=== PATIENT | female | born 2000 | race Caucasian/White ===

== ENCOUNTER → 2019-05-04 10:14 | Outpatient (CLI) | payer SELFPAY ==
[2019-05-04 08:55] VITALS: BMI 22.5
[2019-05-04 10:49] LABS: Basophil# 0.03 X10^3/uL; Basophil% 0.4 % (0-1); Eosinophil# 0.11 X10^3/uL; Eosinophils% 1.5 % (0-5); Hematocrit 42.6 % (37-47); Hemoglobin 14.9 g/dL (12.0-15.0); Lymphocyte % 20.7 % (19-41); Mean Corpuscular Volume 88.6 fL (81-99); Mean Platelet Vol. 9.1 fl (6.2-12.0); Monocyte# 0.59 X10^3/uL; Monocyte% 8.2 % (0-10); NRBC Flagged by Analyzer 0 % (0-5); Neutrophil # 4.96 X10^3/uL (2.7-7.7); Neutrophil % 68.6 % (47-70); Platelet Count 327 K/mm3 (150-450); RBC Distribution Width CV 12.2 % (11.6-14.6); RBC Distribution Width SD 39.7 fl (35.1-43.9); Red Blood Count 4.81 M/mm3 (4.2-5.4); White Blood Count 7.2 K/mm3 (4.4-11.0)
[2019-05-04 12:07] LABS: HIV - WCH Non-Reactive (Nonreactive); Hepatitis B Surface Antigen Non-Reactive (Nonreactive); Rubella IgG 49.8 IU/mL
[2019-05-04 17:16] LABS: Chlamydia Trachomatis by PCR Negative (Negative); Neisserai gonorrhoeae by PCR Negative (Negative); Probe Check PASS; Sample Adequacy Control PASS; Specimen Processing Control PASS
[2019-05-08 16:24] LABS: HPV Reflexed? NOT INDICATED
[2019-05-11 01:48] LABS: Rapid Plasmin Reagin (RPR) NONREACTIVE (NONREACTIVE)
== END ==
PROVIDERS: Referring Provider Obstetrics & Gynecology; Visit Provider Obstetrics & Gynecology
DX: Z12.4 Encounter for screening for malignant neoplasm of cervix (principal)
CPT/HCPCS: 36415; 85025; 86592; 86703; 86762; 86850; 86900; 86901; 87086; 87340; 87491; 87591; 88175; G0145

== ENCOUNTER → 2019-07-11 11:29 | Outpatient (CLI) | payer SELFPAY ==
[2019-06-05 13:06] VITALS: BMI 22.5
[2019-07-11 11:22] VITALS: BMI 22.5
--- NOTE | 2019-07-11 11:58 | US_ITS ---
STUDY: SECOND AND THIRD TRIMESTER OBSTETRICAL ULTRASOUND REASON FOR EXAM: Female, 19 years old ANATOMY -- SUPERVISION OF NORMAL LMP: February 25, 2019. TECHNIQUE: Transabdominal and Transvaginal TECHNICAL QUALITY: Adequate. PRIOR ULTRASOUND: None. FINDINGS: There is a single intrauterine fetus. The fetus is in a breech presentation. There is demonstrated cardiac activity with a heart rate of 147 bpm. There is a normal amniotic fluid volume. The largest amniotic fluid pocket measures 3.8 cm x 3.7 cm. The amniotic fluid index (KIRSTY) is within normal limits. The placenta is posterior in location and is not low lying. There are Grade 1 placental changes. The cervix measures 4.2 in length. The adnexal regions are not visualized. BIOMETRY: BPD: 4.2 cm: 18 weeks, 5 days HC: 15.91 cm: 18 weeks, 5 days AC: 13.54 cm: 18 weeks, 6 days FL: 2.98 cm: 19 weeks, 1 days CI: 76% FL/BPD: 70.9% FL/HC: FL/AC: 22% HC/AC: 1.18 age by current US: 18 weeks, 6 days. RADHA by current US: December 06, 2019. Estimated weight: 271 grams, +/- 40 grams, 25 %. Age by LMP: 19 weeks, 3 days. RADHA by LMP: December 02, 2019. ANATOMY: Gender: Female Cranium: Normal lateral ventricles. Normal choroid plexus. Normal cerebellum. Normal cisterna magna. Normal face, nose and lips. Chest: Normal 4-chamber heart. Abdomen/Pelvis: Normal diaphragm. Normal stomach. Normal abdominal wall. The cord insertion is non-visualized. Possible marginal cord insertion Normal 3 vessel cord. Normal kidneys. Normal bladder. Spine: Normal cervical spine. Normal thoracic spine. Normal lumbar spine. Normal sacrum. Extremities: Normal bilateral upper extremities. Normal bilateral lower extremities. US/OB Anatomy Scan IMPRESSION: Single live intrauterine gestation with a mean gestational age of 18 weeks and 6 days. Electronically Signed: Rojelio Wise, at 12:20 EST , Service support ,
== END ==
PROVIDERS: Referring Provider Obstetrics & Gynecology; Visit Provider Obstetrics & Gynecology
DX: Z34.01 Encounter for supervision of normal first pregnancy, first trimester (principal)
CPT/HCPCS: 76805

== ENCOUNTER → 2019-08-28 13:33 | Outpatient (CLI) | payer SELFPAY ==
[2019-08-28 13:15] VITALS: BMI 22.5
[2019-08-28 14:32] LABS: Hematocrit 33.4 % (37-47); Hemoglobin 11.6 g/dL (12.0-15.0); Mean Corp Hgb Conc 34.7 g/dL (32-36); Mean Corpuscular Hgb 33.4 pg (27.0-32.0); Mean Corpuscular Volume 96.3 fL (81-99); Mean Platelet Vol. 9.2 fl (6.2-12.0); Platelet Count 226 K/mm3 (150-450); RBC Distribution Width CV 13.2 % (11.6-14.6); RBC Distribution Width SD 46.1 fl (35.1-43.9); Red Blood Count 3.47 M/mm3 (4.2-5.4); White Blood Count 10.3 K/mm3 (4.4-11.0)
[2019-08-28 14:39] LABS: Glucose Challenge Gest 1H 50g 150 mg/dL (70-140)
== END ==
PROVIDERS: Referring Provider Obstetrics & Gynecology; Visit Provider Obstetrics & Gynecology
DX: Z34.90 Encounter for supervision of normal pregnancy, unspecified, unspecified trimester (principal)
CPT/HCPCS: 36415; 82950; 85027

== ENCOUNTER → 2019-08-30 09:52 | Outpatient (CLI) | payer OTHER, SELFPAY ==
[2019-08-28 13:15] VITALS: BMI 22.5
[2019-08-30 11:17] LABS: Glucose GTT-Gestation. Fasting 75 mg/dL (<105)
[2019-08-30 13:02] LABS: Glucose GTT-Gestational 1 Hr 148 mg/dL (<190)
[2019-08-30 13:03] LABS: Glucose GTT-Gestational 2 Hr 143 mg/dL (<165)
[2019-08-30 14:13] LABS: Glucose GTT-Gestational 3 Hr 118 L (<145)
== END ==
PROVIDERS: Referring Provider Obstetrics & Gynecology; Visit Provider Obstetrics & Gynecology
DX: O99.810 Abnormal glucose complicating pregnancy (principal); Z3A.00 Weeks of gestation of pregnancy not specified
CPT/HCPCS: 36415; 82951; 82952

== ENCOUNTER → 2019-10-10 11:16 | Outpatient (CLI) | payer SELFPAY ==
[2019-10-09 13:10] VITALS: BMI 22.5
--- NOTE | 2019-10-10 11:18 | US_ITS ---
STUDY: SECOND AND THIRD TRIMESTER OBSTETRICAL ULTRASOUND - LIMITED REASON FOR EXAM: Female, 19 years old GROWTH LMP: February 25, 2019. PRIOR ULTRASOUND: Comparison is made with prior study dated July 11, 2019. TECHNIQUE: Transabdominal TECHNICAL QUALITY: Adequate. FINDINGS: There is a single intrauterine fetus. The fetus is in a cephalic presentation. There is demonstrated cardiac activity with a heart rate of 142 bpm. There is a normal amniotic fluid volume. The largest amniotic fluid pocket measures 4.9 cm. The amniotic fluid index (KIRSTY) is 14.3 cm. The placenta is posterior in location and is not low lying. There are Grade 1 placental changes. The cervix measures 3.2 cm in length. BIOMETRY: BPD: 8.16 cm: 32 weeks, 6 days HC: 29.48 cm: 32 weeks, 4 days AC: 28.1 cm: 32 weeks, 1 days FL: 6.03 cm: 31 weeks, 3 days Age by LMP: 32 weeks, 3 days. RADHA by LMP: December 02, 2019. age by prior US: 31 weeks, 6 days. RADHA by prior US: December 06, 2019. age by current US: 32 weeks, 2 days. RADHA by current US: December 03, 2019. Estimated weight: 1883 grams, +/- 275 grams, 27 percentile. US/OB Limited With Biometrics IMPRESSION: Single live uterine gestation with mean gestational age of 31 weeks and 6 days. The measurements obtained today fall within the normal expected range. Electronically Signed: Rojelio Wise, at 12:52 EDT , Service support ,
== END ==
PROVIDERS: Referring Provider Obstetrics & Gynecology; Visit Provider Obstetrics & Gynecology
DX: O26.849 Uterine size-date discrepancy, unspecified trimester (principal); Z3A.31 31 weeks gestation of pregnancy
CPT/HCPCS: 76816

== ENCOUNTER 2019-12-01 05:10 | Inpatient (IN) | payer SELFPAY ==
[2019-06-05 13:06] VITALS: BMI 22.5
[2019-11-27 13:10] VITALS: BMI 22.5
[2019-11-30 10:12] VITALS: BMI 22.5
[2019-12-01] VITALS (71 sets, daily range): BP systolic 99–130; BP diastolic 61–87; PULSE 78–133; RESP 16; TEMP 36.6–37.3; O2SAT 93–100; BMI 26.2
[2019-12-01] MEDS: Lactated Ringers 1,000 ML 999 ML IV (03:08)
[2019-12-01] MEDS: fentaNYL 100 MCG/2 ML Ampul 50 MCG IV (03:21)
[2019-12-01] MEDS: proMETHazine 25 MG/ML Syringe 12.5 MG IV (03:21)
[2019-12-01 03:24] LABS: Absolute Lymphocyte Count 1.29 X10^3/uL (0.83-4.51); Absolute Neutrophil Count 11.6 X10^3/uL (2.0-7.7); Basophil# 0.02 X10^3/uL; Basophil% 0.1 % (0-1); Eosinophil# 0.08 X10^3/uL; Eosinophils% 0.6 % (0-5); Hematocrit 37.5 % (37-47); Hemoglobin 12.6 g/dL (12.0-15.0); Lymphocyte # 1.29 X10^3/ul (4.0); Lymphocyte % 9.2 % (19-41); Mean Corp Hgb Conc 33.6 g/dL (32-36); Mean Corpuscular Hgb 31.5 pg (27.0-32.0); Mean Corpuscular Volume 93.8 fL (81-99); Mean Platelet Vol. 9.3 fl (6.2-12.0); Monocyte# 0.97 X10^3/uL; Monocyte% 6.9 % (0-10); NRBC Flagged by Analyzer 0 % (0-5); Neutrophil # 11.55 X10^3/uL (2.7-7.7); Neutrophil % 82.5 % (47-70); Platelet Count 211 K/mm3 (150-450); RBC Distribution Width CV 13.1 % (11.6-14.6); RBC Distribution Width SD 44.9 fl (35.1-43.9)
[2019-12-01 05:07] LABS: ROM Internal Control Test YES-OK TO RESULT pt. (Internal QC); ROM Patient Test POSITIVE (Negative)
[2019-12-01] MEDS: Lactated Ringers 500 ML 999 ML IV (05:25)
[2019-12-01] MEDS: Lactated Ringers 1,000 ML 200 ML IV (05:55)
[2019-12-01] MEDS: fentaNYL-bupivacaine (epidural) 100 ML BAG EPIDURAL (06:48)
[2019-12-01] MEDS: Oxytocin 30 units/NS 500 ml 30 UNITS/500 ML IV.SOLN 334 UNITS IV (10:39)
[2019-12-01] MEDS: Methylergonovine 0.2 MG/ML Ampul IM (10:43)
[2019-12-01] MEDS: Carboprost Tromethamine 250 MCG/ML Ampul IM (10:49)
--- NOTE | 2019-12-01 10:57 | PCM.HP.OB ---
- Problem List (1) Active labor at term Status: Acute (2) Uterine size-date discrepancy, third trimester Status: Acute Comment: growth us, nl US (3) Abnormal glucose affecting Status: Acute Comment: Normal 3gtt (4) Status: Acute Qualifiers: Comment: declined NIPT, carrier, and ntd screening. normal anatomy (5) Supervision of normal Status: Acute Qualifiers: Comment: PRR RADHA 12/02/19 gender surprise Spouse: Atlee History Date of Admission: 12/01/19 Final RADHA: 12/02/19 Gestational age: 39 Weeks and 6 Days History of this : This is a 19 year-old, , at 39 weeks gestational age presents IAL. SROM clear fluid and then 6 cm dilated after epidural placement. Surgical History: Surgical History (Last Reviewed 11/30/19 @ 10:12 by Jayashree Smith) History of appendectomy Z90.49 Allergies No Known Allergies Allergy (Verified 12/01/19 00:53) Home Medications: Home Medications vitamin#30 30 mg iron-10 mg iron-folic acid 1 mg-omg3 capsule 1 cap PO DAILY cap 05/04/19 Smoking Status: Never smoker Alcohol: None Number of Fetus(es): 1 NST - FHR Rate Baby A Baseline: 130 Variability:: Moderate Accelerations:: 15 x 15 Decelerations:: None NST Reactive:: Yes FHR Category:: Category I Uterine Activity:: q 3-5 History Past Pregnancies: Past Pregnancies Delivery Date Name GA/ Weeks Outcome Route Wt Sex Labor Length Anesthesia Delivery Location Provider FOB Labs: Mom's Problem List Problem Status Onset Code Active labor at term Acute Mom's Labs & Results 12/01/19 12/01/19 12/01/19 03:08 03:08 05:00 WBC 14.0 H RBC 4.00 L Hgb 12.6 Hct 37.5 MCV 93.8 MCH 31.5 MCHC 33.6 RDW Std Deviation 44.9 H RDW Coeff of Bj 13.1 Plt Count 211 MPV 9.3 Immature Gran % (Auto) 0.700 Neut % (Auto) 82.5 H Lymph % (Auto) 9.2 L Harvey % (Auto) 6.9 Eos % (Auto) 0.6 Baso % (Auto) 0.1 Absolute Neuts (auto) 11.6 H Absolute Lymphs (auto) 1.29 Nucleated RBC % 0 Vag Amniotic Fld Detect POSITIVE H COVID-19 (KAYLA) Blood Type O POSITIVE Antibody Screen NEGATIVE 12/01/19 05:31 WBC RBC Hgb Hct MCV MCH MCHC RDW Std Deviation RDW Coeff of Bj Plt Count MPV Immature Gran % (Auto) Neut % (Auto) Lymph % (Auto) Harvey % (Auto) Eos % (Auto) Baso % (Auto) Absolute Neuts (auto) Absolute Lymphs (auto) Nucleated RBC % Vag Amniotic Fld Detect COVID-19 (KAYLA) Not Detected Blood Type Antibody Screen Course Did the patient receive Yes care? Labs Blood Type: O RH: POSITIVE RPR/VDRL/Syphilis Nonreactive Rubella status Immune HbSAg Negative Date Done: 05/04/19 Chlamydia Negative Gonorrhea Negative HIV/AIDS Non-Reactive Group B Strep: Negative Current Obstetrical History Gestational Diabetes No Incompetent Cervix No Infertility No IUGR No Macrosomia No Hypertension/Pre-eclampsia No Placenta Previa/Abruption No PTL/PROM No Uterine anomaly No Oligohydramnios No Polyhydramnios No Multiple gestation No Past Medical History Asthma No Diabetes No Hypertension No Heart disease No Mitral valve prolapse No Neurologic/Seizure disorder/ No Migraines Kidney disease No Liver disease No Varicosities No Clotting disorders/Hx of DVT No Thyroid Dysfunction No Other medical diseases No Psychiatric disorders No Major trauma No Abnormal PAP smear No Sleep apnea No Mammogram in the last 2 years No Social History Marital Status: Alleged father Atlee Hx Smoking No Smoking Status Never smoker Expected Infant Delivery Method: Spontaneous Vaginal Review of Systems Constitutional: Denies: Fever, Malaise Eyes: Denies: Blurred vision, Vision Change HEENT: Denies: Head Aches, Visual Changes Cardiovascular: Denies: Chest Pain, Palpitations Respiratory: Denies: Cough, Shortness of Breath, Wheezing Gastrointestinal: Denies: Abdominal Pain, Diarrhea, Nausea, Vomiting Genitourinary: Denies: Dysuria, Hematuria Musculoskeletal: Denies: Joint Pain, Muscle pain Skin: Denies: Lesions, Rash Neurological: Denies: Blurred vision, Focal weakness, Headaches Psychiatric: Denies: Anxiety, Depression Endocrine: Denies: Heat/ Cold Intolerance Hematologic/ Lymphatic: Denies: Easy Bruising, Easy Bleeding Physical Exam Vitals: Vital Signs Temp Pulse BP Pulse Ox 99.2 F H 99 112/61 99 12/01/19 09:37 12/01/19 10:53 12/01/19 10:52 12/01/19 10:53 General: Alert, Cooperative, No apparent distress HEENT: Atraumatic, Normocephalic. Negative for: Thyromegaly, Lymphadenopathy Cardiovascular: Regular rate Lungs: Normal air movement Abdomen: Soft, Non Tender, Gravid Neurological: Deep Tendon Reflexes 2+/4 and Symmetrical, Neuro grossly intact. Negative for: Clonus EXPLOSIVE ORDNANCE DISPOSAL SPECIALIST: Normal external genitalia. Negative for: Vulvar lesions Estimated gestational size: Appropriate for gestational size Presentation: Cephalic Assessment/Plan All Active Problems (Last Reviewed 11/30/19 @ 10:12 by Jayashree Smith) Active labor at term (Acute) Uterine size-date discrepancy, third trimester (Acute) Abnormal glucose affecting (Acute) (Acute) Supervision of normal (Acute) Uterine size-date discrepancy, third trimester (Resolved) This is a 19 year-old, at 39 weeks gestational age presents IAL. Patient presents IAL, plan expectant management for , . Pain management: Plans epidural. GBS negative. Management of any complications: None I have reviewed the [facility] and made any clinically relevant updates.
--- NOTE | 2019-12-01 11:04 | PCM.OPRPT ---
Problem List (1) Active labor at term Status: Acute (2) Uterine size-date discrepancy, third trimester Status: Acute Comment: growth us, nl US (3) Abnormal glucose affecting Status: Acute Comment: Normal 3gtt (4) Status: Acute Qualifiers: Comment: declined NIPT, carrier, and ntd screening. normal anatomy (5) Supervision of normal Status: Acute Qualifiers: Comment: PRR RADHA 12/02/19 gender surprise Spouse: Atlee (6) Vaginal delivery Status: Acute (7) Uterine atony, , without hemorrhage Status: Acute Vaginal Delivery Maternal Presentation: Active Labor ial Amniotic Membrane Rupture Type: Spontaneous Amniotic Fluid Description: Clear Final RADHA: 12/02/19 Gestational age: 39 Weeks and 6 Days Date of Procedure: 12/01/19 Pre-Operative Diagnosis: ial Post-Operative Diagnosis: same plus atony Surgery/ Procedure Performed: Spontaneous Vaginal Delivery Type of Anesthesia: Epidural Description of Procedure: Patient began pushing and delivered the head in the MICHAEL presentation. The head was delivered atraumatically [and a loose nuchal cord ?1 was identified and easily reduced over the 's head]. The anterior and posterior shoulders delivered without complication followed by the rest of the infant and the infant was placed on the maternal abdomen. Delayed cord clamping was employed for approximately 60 seconds. Cord was clamped and cut and gentle traction was applied to the cord and the placenta delivered spontaneously immediately following it was noted to be intact with three-vessel cord. The perineum and vagina were inspected and noted to have a second-degree perineal laceration and a supraclitoral small superficial first-degree tear that was repaired in the usual fashion with 3-0 Vicryl repeat. Uterine atony without hemorrhage was noted after delivery and with bimanual massage, Methergine, Pitocin, Hemabate, bleeding was controlled. Tranexamic acid was also ordered and given to proactively treat. EBL was 600 . Patient and infant tolerated delivery well. Presentation: MICHAEL Placental Delivery Description: Spontaneous Placenta Disposition: [facility] Cord Vessel Description: 3 Vessels Cord Entanglement: None Estimated Blood Loss: 600 A gender: Female Episiotomy Description: None Laceration: Perineal Extension/lac, 2nd degree Medications given after delivery: IV Pitocin Complications: None Multi Select Codes - Urinary/Genital Urinary/Genital CPT Codes: 52085 Vaginal Delivery global g
--- NOTE | 2019-12-01 11:15 | DCINST_ITS ---
Discharge Diet: No Restrictions Discharge Activity: Return to Normal Activity, May not drive while taking narcotic pain medications., May Shower May resume sexual activity in: 4-6 weeks Call your doctor if your incision/area has: Continuous Slow Oozing, Sudden Increased Bleeding, Increased Pain/ Swelling, Increased Redness, Foul Smelling Discharge Additional Instructions: If you experience any of the following, contact your healthcare provider. * Bleeding that soaks a pad every hour for 2 hours * Fever 100.4 or higher * Unrelieved incision or abdominal pain * Swelling, redness, discharge or bleeding from your incision or episiotomy site * Your incision begins to separate * Problems urinating (including inability to urinate or burning while urinating). * Visual changes * Severe headache * Flu-like symptoms * Pain or redness in one of both of your breasts * Pain, warmth, tenderness or swelling in your legs, especially the calf area * Frequent nausea and vomiting * Symptoms of depression or anxiety If you experience any of the following, call 911 or go to the nearest Emergency Room. * Chest pain * Problems breathing * Seizure activity * Partial or complete paralysis of a body part, slurred speech, weakness or drooping of the face, or a sudden inability to walk or hold your balance Allergies/Adverse Reactions: Allergies No Known Allergies Allergy (Verified 12/01/19 00:53) Medications to take at Discharge vitamin#30 30 mg iron-10 mg iron-folic acid 1 mg-omg3 capsule 1 cap PO DAILY cap 05/04/19 Please Follow Up With: Katy Gonzalez MD - [phone] When: Call to make an appointment with your doctor in 6 weeks. If you had elevated Blood pressure or 4th degree laceration you will need to be seen in 2 weeks. Primary Care Physician: Care Physician,No Primary [Primary Care Provider] - Test Results: Test results from this visit will be discussed in further detail at your follow- up appointment, if applicable.
--- NOTE | 2019-12-01 11:15 | PCM.DCVAG ---
Discharge Diet: No Restrictions Discharge Activity: Return to Normal Activity, May not drive while taking narcotic pain medications., May Shower May resume sexual activity in: 4-6 weeks Call your doctor if your incision/area has: Continuous Slow Oozing, Sudden Increased Bleeding, Increased Pain/ Swelling, Increased Redness, Foul Smelling Discharge Additional Instructions: If you experience any of the following, contact your healthcare provider. Bleeding that soaks a pad every hour for 2 hours Fever 100.4 or higher Unrelieved incision or abdominal pain Swelling, redness, discharge or bleeding from your incision or episiotomy site Your incision begins to separate Problems urinating (including inability to urinate or burning while urinating). Visual changes Severe headache Flu-like symptoms Pain or redness in one of both of your breasts Pain, warmth, tenderness or swelling in your legs, especially the calf area Frequent nausea and vomiting Symptoms of depression or anxiety If you experience any of the following, call 911 or go to the nearest Emergency Room. Chest pain Problems breathing Seizure activity Partial or complete paralysis of a body part, slurred speech, weakness or drooping of the face, or a sudden inability to walk or hold your balance Allergies/Adverse Reactions: Allergies No Known Allergies Allergy (Verified 12/01/19 00:53) Medications to take at Discharge vitamin#30 30 mg iron-10 mg iron-folic acid 1 mg-omg3 capsule 1 cap PO DAILY cap 05/04/19 Please Follow Up With: Katy Gonzalez MD - [phone] When: Call to make an appointment with your doctor in 6 weeks. If you had elevated Blood pressure or 4th degree laceration you will need to be seen in 2 weeks. Primary Care Physician: Care Physician,No Primary [Primary Care Provider] - Test Results: Test results from this visit will be discussed in further detail at your follow-up appointment, if applicable.
[2019-12-01] MEDS: 0.9% Saline Lock 10 ML Syringe IV ×3 (11:16→13:26)
[2019-12-01] MEDS: Naproxen 250 MG Tablet 500 MG PO ×2 (14:37→22:41)
--- NOTE | 2019-12-01 18:48 | NURSING ---
Scant amount of rubra noted on pt's peripad when changed with recent void and pericare.
[2019-12-02] VITALS (7 sets, daily range): BP systolic 96–105; BP diastolic 41–67; PULSE 81–98; RESP 15–17; TEMP 36.3–37.2
[2019-12-02] MEDS: Acetaminophen 500 MG Tablet 1000 MG PO ×2 (00:45→07:44)
[2019-12-02 05:40] LABS: Absolute Lymphocyte Count 1.72 X10^3/uL (0.83-4.51); Absolute Neutrophil Count 10.6 X10^3/uL (2.0-7.7); Basophil# 0.02 X10^3/uL; Basophil% 0.1 % (0-1); Eosinophil# 0.17 X10^3/uL; Eosinophils% 1.2 % (0-5); Hematocrit 30.4 % (37-47); Hemoglobin 9.9 g/dL (12.0-15.0); Lymphocyte # 1.72 X10^3/ul (4.0); Lymphocyte % 12.3 % (19-41); Mean Corp Hgb Conc 32.6 g/dL (32-36); Mean Corpuscular Hgb 30.7 pg (27.0-32.0); Mean Corpuscular Volume 94.4 fL (81-99); Mean Platelet Vol. 9.6 fl (6.2-12.0); Monocyte# 1.33 X10^3/uL; Monocyte% 9.5 % (0-10); NRBC Flagged by Analyzer 0 % (0-5); Neutrophil # 10.62 X10^3/uL (2.7-7.7); Platelet Count 211 K/mm3 (150-450); RBC Distribution Width CV 13.2 % (11.6-14.6); RBC Distribution Width SD 45.2 fl (35.1-43.9); Red Blood Count 3.22 M/mm3 (4.2-5.4)
[2019-12-02] MEDS: Naproxen 250 MG Tablet 500 MG PO (09:53)
--- NOTE | 2019-12-02 10:50 | PN.OBGYN_ITS ---
Patient Problems: Active and Suspected Problems (Last Reviewed 11/30/19 @ 10:12 by Jayashree Smith) Active labor at term (Acute) Vaginal delivery (Acute) Uterine atony, , without hemorrhage (Acute) Subjective: doing well no complaints pain controlled no CP SOB N V ambulating well tolerating po lochia moderate, going well - Physical Exam Vitals/I&O's: Vital Signs Temp Pulse Resp BP Pulse Ox 97.9 F 81 16 96/54 L 96 12/02/19 07:30 12/02/19 07:37 12/02/19 07:30 12/02/19 07:37 12/01/19 16:26 Oxygen Delivery Method Room Air Weight: 148 lb 6.4 oz Body Mass Index (BMI) 26.2 Intake and Output for Last 24 Hours 11/30/19 12/01/19 12/02/19 23:59 23:59 23:59 Intake Total 4056.17 / 4056.17 Output Total 2395 / 2395 Balance 1661.17 / 1661.17 Laboratory Results 12/02/19 05:30: WBC 14.0 H, RBC 3.22 L, Hgb 9.9 L, Hct 30.4 L, MCV 94.4, MCH 30.7, MCHC 32.6, RDW Std Deviation 45.2 H, RDW Coeff of Bj 13.2, Plt Count 211, MPV 9.6, Immature Gran % (Auto) 0.900, Neut % (Auto) 76.0 H, Lymph % (Auto) 12.3 L, [place] % (Auto) 9.5, Eos % (Auto) 1.2, Baso % (Auto) 0.1, Absolute Neuts (auto) 10.6 H, Absolute Lymphs (auto) 1.72, Nucleated RBC % 0 Current Medications Acetaminophen (Tylenol) 1,000 mg PO Q8H PRN PRN PRN Reason: Pain Score 1-3/10 Last Admin: 12/02/19 07:44 Dose: 1,000 mg Documented by: Bisacodyl (Dulcolax) 10 mg RECTAL UD PRN PRN Reason: If no BM Dibucaine (Dibucaine) 1 applic TOPICAL TID PRN PRN; Protocol PRN Reason: Discomfort Hydrocortisone (Hytone) 1 applic TOPICAL TID PRN PRN; Protocol PRN Reason: Discomfort Methylergonovine Maleate (Methergine) 0.2 mg IM X1 PRN PRN Reason: Excess bleeding/uterine atony Last Admin: 12/01/19 10:43 Dose: 0.2 mg Documented by: Naproxen (Naprosyn) 500 mg PO Q8H PRN PRN PRN Reason: Pain Score 1-3/10 Last Admin: 12/02/19 09:53 Dose: 500 mg Documented by: Ondansetron HCl (Zofran) 4 mg IV Q4H PRN PRN PRN Reason: Nausea Oxycodone HCl (Oxyir) 5 - 10 mg PO Q4H PRN PRN PRN Reason: Pain Score 4-10/10 Senna/Docusate Sodium (Senokot-S, Nida-Colace) 1 - 2 tablet PO DAILY PRN PRN PRN Reason: Constipation Simethicone (Mylicon) 80 mg PO PCHS PRN PRN Reason: Indigestion/Stomach pain Sodium Chloride () 5 - 15 ml IV UD PRN PRN Reason: SALINE FLUSH Last Admin: 12/01/19 13:26 Dose: 10 ml Documented by: Medical Necessity - Tobacco Use Smoking Status: Never smoker Assessment/Plan All Active Problems (Last Reviewed 11/30/19 @ 10:12 by Jayashree Smith) Active labor at term (Acute) Vaginal delivery (Acute) Uterine atony, , without hemorrhage (Acute) Uterine size-date discrepancy, third trimester (Acute) Abnormal glucose affecting (Acute) (Acute) Supervision of normal (Acute) Uterine size-date discrepancy, third trimester (Resolved) s/p PPD # 1 1. routine post delivery care 2. breast feeding- support given 3. rh positive 4. rubella immune uterine atony- minimal blood loss after initial episode, overall EBL 800 in last 24 hours
--- NOTE | 2019-12-02 14:52 | NURSING ---
1325 and maternal bracelet numbers match; placed in car seat per parents; dc papers given and reviewed; pt denies any further teaching needs; dc to home
== END 2019-12-02 13:25 | disposition home or self-care (01) | DRG 807 ==
LOC: WPOUT 05:15 → WP 05:15
PROVIDERS: Admitting Provider Obstetrics & Gynecology; Visit Provider Obstetrics & Gynecology
DX: O70.1 Second degree perineal laceration during delivery (principal); Z37.0 Single live birth; O62.2 Other uterine inertia; O69.81X0 Labor and delivery complicated by cord around neck, without compression, not applicable or unspecified; Z90.49 Acquired absence of other specified parts of digestive tract; Z3A.39 39 weeks gestation of pregnancy
CPT/HCPCS: 59025; 59050; 84112; 85025; 86850; 86900; 86901; 87635; 99218; G2023; J7120; A4216; G0378; U0003

== ENCOUNTER → 2020-11-11 18:58 | Outpatient (CLI) | payer OTHER, SELFPAY ==
[2020-01-11 10:43] VITALS: BMI 26.2
[2020-11-11 19:51] LABS: hCG Titer Quant., Serum 10 mIU/mL (1-3)
== END ==
PROVIDERS: Visit Provider Obstetrics & Gynecology
DX: O20.0 Threatened abortion (principal); Z3A.00 Weeks of gestation of pregnancy not specified
CPT/HCPCS: 84702

== ENCOUNTER → 2021-05-06 17:24 | Outpatient (CLI) | payer SELFPAY ==
[2021-05-08 22:07] LABS: Chlamydia By Nucleic Acid AMP Negative (Negative)
[2021-05-09 16:09] LABS: Gonococcus By Nucleic Acid AMP Negative (Negative)
== END ==
PROVIDERS: Referring Provider Obstetrics & Gynecology; Visit Provider Obstetrics & Gynecology
DX: Z34.80 Encounter for supervision of other normal pregnancy, unspecified trimester (principal)
CPT/HCPCS: 87086; 87088; 87491; 87591

== ENCOUNTER 2021-06-04 11:27 | Outpatient (CLI) | payer SELFPAY ==
[2021-06-04 12:01] LABS: Absolute Lymphocyte Count 1.68 X10^3/uL (0.83-4.51); Absolute Neutrophil Count 5.8 X10^3/uL (2.0-7.7); Basophil# 0.02 X10^3/uL; Basophil% 0.2 % (0-1); Eosinophil# 0.12 X10^3/uL; Eosinophils% 1.4 % (0-5); Hematocrit 38.3 % (37-47); Hemoglobin 13.5 g/dL (12.0-15.0); Lymphocyte # 1.68 X10^3/ul (0.83-4.51); Lymphocyte % 20.3 % (19-41); Mean Corp Hgb Conc 35.2 g/dL (32-36); Mean Corpuscular Volume 87.8 fL (81-99); Monocyte# 0.58 X10^3/uL; NRBC Flagged by Analyzer 0 % (0-5); Neutrophil # 5.84 X10^3/uL (2.7-7.7); Neutrophil % 70.6 % (47-70); Platelet Count 287 K/mm3 (150-450); RBC Distribution Width CV 12.8 % (11.6-14.6); Red Blood Count 4.36 M/mm3 (4.2-5.4); White Blood Count 8.3 K/mm3 (4.4-11.0)
[2021-06-04 12:40] LABS: Rubella IgG Reactive (Nonreactive)
== END 2021-06-04 23:59 | disposition short-term general hospital (02) ==
LOC: PAVLAB 11:28
PROVIDERS: Obstetrics & Gynecology; Referring Provider Nurse Practitioner Women's Health; Visit Provider Nurse Practitioner Women's Health
DX: Z34.80 Encounter for supervision of other normal pregnancy, unspecified trimester (principal)
CPT/HCPCS: 36415; 85025; 86762; 86850; 86900; 86901

== ENCOUNTER 2021-07-11 08:18 | Outpatient (CLI) | payer SELFPAY ==
--- NOTE | 2021-07-11 08:25 | US_ITS ---
STUDY: SECOND AND THIRD TRIMESTER OBSTETRICAL ULTRASOUND REASON FOR EXAM: Female, 21 years old . Anatomy scan. LMP: 02/24/2021. TECHNIQUE: Transabdominal and Transvaginal TECHNICAL QUALITY: Adequate. PRIOR ULTRASOUND: None. FINDINGS: There is a single intrauterine fetus. The fetus is in a cephalic presentation. There is demonstrated cardiac activity with a heart rate of 126 bpm. There is a normal amniotic fluid volume. The largest amniotic fluid pocket measures 4.5 cm x 3.3 cm. The amniotic fluid index (KIRSTY) is within normal limits. The placenta is anterior with a complete previa. There are Grade 0 placental changes. The cervix measures 4.9 cm in length. The adnexal regions are not visualized. BIOMETRY: BPD: 4.8 cm: 20 weeks, 4 days HC: 17.24 cm: 19 weeks, 5 days AC: 15.58 cm: 20 weeks, 5 days FL: 2.86 cm: 18 weeks, 5 days CI: 82% FL/BPD: 59% FL/HC: FL/AC: 18% HC/AC: 1.11 age by current US: 19 weeks, 5 days. RADHA by current US: 11/30/2021. Estimated weight: 325 grams, +/- 49 grams, 68 %. Age by LMP: 19 weeks, 4 days. RADHA by LMP: 12/01/2021. ANATOMY: Gender: Indeterminant Cranium: Normal lateral ventricles. Normal choroid plexus. Normal cerebellum. Normal cisterna magna. Normal face, nose and lips. Chest: Normal 4-chamber heart. Abdomen/Pelvis: Normal diaphragm. Normal stomach. Normal abdominal wall. Normal cord insertion. Normal 3 vessel cord. Normal kidneys. Normal bladder. Spine: Normal cervical spine. Normal thoracic spine. Normal lumbar spine. Normal sacrum. Extremities: Normal bilateral upper extremities. Normal bilateral lower extremities. IMPRESSION: Single live intrauterine gestation with a mean gestational age of 19 weeks and 5 days. There is evidence of an anterior complete placenta previa. Electronically Signed: Rojelio Wise MD at 9:18 EST , STUDY: FIRST TRIMESTER OBSTETRICAL ULTRASOUND REASON FOR EXAM: Female, 21 years old . Cervical length measurement. LMP: 02/24/2021 TECHNIQUE: Transvaginal TECHNICAL QUALITY: Adequate. PRIOR ULTRASOUND: None. FINDINGS: The cervical length measures 4.9 cm. US/OB Anatomy Scan IMPRESSION: Cervical length measures 4.9 cm. Electronically Signed: Rojelio Wise MD at 9:19 EST ,
--- NOTE | 2021-07-11 08:25 | US_ITS ---
STUDY: SECOND AND THIRD TRIMESTER OBSTETRICAL ULTRASOUND REASON FOR EXAM: Female, 21 years old . Anatomy scan. LMP: 02/24/2021. TECHNIQUE: Transabdominal and Transvaginal TECHNICAL QUALITY: Adequate. PRIOR ULTRASOUND: None. FINDINGS: There is a single intrauterine fetus. The fetus is in a cephalic presentation. There is demonstrated cardiac activity with a heart rate of 126 bpm. There is a normal amniotic fluid volume. The largest amniotic fluid pocket measures 4.5 cm x 3.3 cm. The amniotic fluid index (KIRSTY) is within normal limits. The placenta is anterior with a complete previa. There are Grade 0 placental changes. The cervix measures 4.9 cm in length. The adnexal regions are not visualized. BIOMETRY: BPD: 4.8 cm: 20 weeks, 4 days HC: 17.24 cm: 19 weeks, 5 days AC: 15.58 cm: 20 weeks, 5 days FL: 2.86 cm: 18 weeks, 5 days CI: 82% FL/BPD: 59% FL/HC: FL/AC: 18% HC/AC: 1.11 age by current US: 19 weeks, 5 days. RADHA by current US: 11/30/2021. Estimated weight: 325 grams, +/- 49 grams, 68 %. Age by LMP: 19 weeks, 4 days. RADHA by LMP: 12/01/2021. ANATOMY: Gender: Indeterminant Cranium: Normal lateral ventricles. Normal choroid plexus. Normal cerebellum. Normal cisterna magna. Normal face, nose and lips. Chest: Normal 4-chamber heart. Abdomen/Pelvis: Normal diaphragm. Normal stomach. Normal abdominal wall. Normal cord insertion. Normal 3 vessel cord. Normal kidneys. Normal bladder. Spine: Normal cervical spine. Normal thoracic spine. Normal lumbar spine. Normal sacrum. Extremities: Normal bilateral upper extremities. Normal bilateral lower extremities. IMPRESSION: Single live intrauterine gestation with a mean gestational age of 19 weeks and 5 days. There is evidence of an anterior complete placenta previa. Electronically Signed: Rojelio Wise MD at 9:18 EST , STUDY: FIRST TRIMESTER OBSTETRICAL ULTRASOUND REASON FOR EXAM: Female, 21 years old . Cervical length measurement. LMP: 02/24/2021 TECHNIQUE: Transvaginal TECHNICAL QUALITY: Adequate. PRIOR ULTRASOUND: None. FINDINGS: The cervical length measures 4.9 cm. US/Transvaginal w/Preg US IMPRESSION: Cervical length measures 4.9 cm. Electronically Signed: Rojelio Wise MD at 9:19 EST ,
== END 2021-07-11 23:59 | disposition home or self-care (01) ==
PROVIDERS: Referring Provider Nurse Practitioner Women's Health; Visit Provider Nurse Practitioner Women's Health
DX: Z34.81 Encounter for supervision of other normal pregnancy, first trimester (principal); Z3A.14 14 weeks gestation of pregnancy
CPT/HCPCS: 76805; 76817

== ENCOUNTER 2021-09-08 09:59 | Outpatient (CLI) | payer SELFPAY ==
--- NOTE | 2021-09-08 10:05 | US_ITS ---
STUDY: SECOND AND THIRD TRIMESTER OBSTETRICAL ULTRASOUND - LIMITED REASON FOR EXAM: Female, 21 years old placenta follow-up at 28 weeks LMP: 02/24/2021. PRIOR ULTRASOUND: Comparison is made with prior examination dated 07/11/2021. TECHNIQUE: Transabdominal and Transvaginal TECHNICAL QUALITY: Adequate. FINDINGS: There is a single intrauterine fetus. The fetus is in a cephalic presentation. There is demonstrated cardiac activity with a heart rate of 144 bpm. There is a normal amniotic fluid volume. The largest amniotic fluid pocket measures 5.9 cm. The amniotic fluid index (KIRSTY) is 18.04 cm. The placenta is anterior in location and is not low lying. There are Grade 0 placental changes. The cervix measures 3.6 cm in length. BIOMETRY: Age by LMP: 28 weeks, 0 days. RADHA by LMP: 12/01/2021. age by prior US: 28 weeks, 1 days. RADHA by prior US: 11/30/2021. US/OB Limited (No Biometrics) IMPRESSION: The placenta is anterior in location. No evidence of placenta previa at this time. Electronically Signed: Rojelio Wise MD at 14:58 EDT ,
== END 2021-09-08 23:59 | disposition home or self-care (01) ==
PROVIDERS: Referring Provider Nurse Practitioner Women's Health; Visit Provider Nurse Practitioner Women's Health
DX: O44.02 Complete placenta previa NOS or without hemorrhage, second trimester (principal); Z3A.00 Weeks of gestation of pregnancy not specified
CPT/HCPCS: 76815

== ENCOUNTER 2021-09-10 09:15 | Outpatient (CLI) | payer SELFPAY, OTHER ==
[2021-09-10 10:54] LABS: Absolute Neutrophil Count 6.3 X10^3/uL (2.0-7.7); Basophil# 0.04 X10^3/uL; Basophil% 0.4 % (0-1); Eosinophil# 0.17 X10^3/uL; Eosinophils% 1.9 % (0-5); Hematocrit 36.5 % (37-47); Hemoglobin 12.9 g/dL (12.0-15.0); Lymphocyte % 17.9 % (19-41); Mean Corp Hgb Conc 35.3 g/dL (32-36); Mean Corpuscular Hgb 32.7 pg (27.0-32.0); Mean Corpuscular Volume 92.6 fL (81-99); Mean Platelet Vol. 9.3 fl (6.2-12.0); Monocyte# 0.63 X10^3/uL; Monocyte% 7.1 % (0-10); NRBC Flagged by Analyzer 0 % (0-5); Neutrophil # 6.33 X10^3/uL (2.7-7.7); Platelet Count 263 K/mm3 (150-450); RBC Distribution Width CV 12.9 % (11.6-14.6); RBC Distribution Width SD 43.8 fl (35.1-43.9); Red Blood Count 3.94 M/mm3 (4.2-5.4); White Blood Count 8.9 K/mm3 (4.4-11.0)
[2021-09-10 11:15] LABS: Glucose Challenge Gest 1H 50g 119 mg/dL (70-140)
== END 2021-09-10 23:59 | disposition home or self-care (01) ==
LOC: LAB 09:35
PROVIDERS: Obstetrics & Gynecology; Visit Provider Nurse Practitioner Women's Health
DX: Z34.90 Encounter for supervision of normal pregnancy, unspecified, unspecified trimester (principal); Z3A.22 22 weeks gestation of pregnancy
CPT/HCPCS: 36415; 82950; 85025

== ENCOUNTER → 2021-11-04 | Outpatient (CLI) | payer SELFPAY, OTHER | END | disposition home or self-care (01) | LOC: LABSPEC 11-05 09:37 | PROVIDERS: Visit Provider Obstetrics & Gynecology | DX: Z34.80 Encounter for supervision of other normal pregnancy, unspecified trimester (principal) | CPT/HCPCS: 87081 ==

== ENCOUNTER 2021-12-01 01:52 | Inpatient (IN) | payer SELFPAY, OTHER ==
[2021-12-01] VITALS (76 sets, daily range): BP systolic 96–138; BP diastolic 50–88; PULSE 78–115; RESP 16; TEMP 36.4–36.9; O2SAT 91–100; BMI 28.6
[2021-12-01 01:44] LABS: ROM Internal Control Test YES-OK TO RESULT pt. (Internal QC); ROM Patient Test Negative (Negative)
[2021-12-01] MEDS: LACTATED RINGERS 500 ML 999 ML IV ×2 (02:05→03:40)
[2021-12-01] MEDS: Lactated Ringers 1,000 ML 200 ML IV (02:35)
[2021-12-01 02:36] LABS: Absolute Lymphocyte Count 2.08 X10^3/uL (0.83-4.51); Absolute Neutrophil Count 8.4 X10^3/uL (2.0-7.7); Basophil# 0.04 X10^3/uL; Basophil% 0.3 % (0-1); Eosinophils% 0.8 % (0-5); Hematocrit 38.2 % (37-47); Hemoglobin 12.7 g/dL (12.0-15.0); Lymphocyte # 2.08 X10^3/ul (0.83-4.51); Lymphocyte % 17.6 % (19-41); Mean Corp Hgb Conc 33.2 g/dL (32-36); Mean Corpuscular Volume 93.2 fL (81-99); Mean Platelet Vol. 9.4 fl (6.2-12.0); Monocyte% 8.5 % (0-10); NRBC Flagged by Analyzer 0 % (0-5); Neutrophil # 8.38 X10^3/uL (2.7-7.7); Neutrophil % 71.1 % (47-70); Platelet Count 271 K/mm3 (150-450); RBC Distribution Width CV 12.7 % (11.6-14.6); White Blood Count 11.8 K/mm3 (4.4-11.0)
[2021-12-01] MEDS: 0.9% Saline Lock 10 ML Syringe IV (02:53)
[2021-12-01] MEDS: Ondansetron 4 MG/2 ML Vial IV (02:53)
[2021-12-01] MEDS: fentaNYL-bupivacaine (epidural) 100 ML BAG EPIDURAL (03:35)
[2021-12-01] MEDS: Oxytocin 30 units/NS 500 ml 30 UNITS/500 ML IV.SOLN 334 UNITS IV (07:45)
--- NOTE | 2021-12-01 07:59 | HP.PCM.OB_ITS ---
HPI - General General Date of Admission: 12/01/21 HPI Narrative VELIA GRIGGS, is a 21 F who presents Maternal Data Information RADHA Calculator Estimated Delivery Date Method Current WG Current Estimate 12/01/21 LMP (Certain) 40w 0d Other Estimates 11/28/21 Ultrasound #1 40w 3d PFSH PFSH Medical History no medical history Home Medications vitamin#30 30 mg iron-10 mg iron-folic acid 1 mg-omg3 capsule 1 cap PO DAILY 05/04/19 [History Last Taken 11/29/19] Allergy/AdvReac Type Severity Reaction Status Date / Time No Known Allergies Allergy Verified 12/01/21 01:17 Family History no significant family his Surgical History History of appendectomy Surgical History no surgical history Social History household members: family housing: house number of children: 1 Smoking Status: Never smoker alcohol intake: never substance use type: does not use caffeine: Yes what type of physical activity do you participate in: walking seatbelt use: always do you feel safe at home: Yes additional social history: Atlee- House remodeling History 3 Elective abortions Hx Para 1 Spontaneous abortions 1 Hx # Term Pregnancies Ectopic pregnancies Hx # Pregnancies Multiple births # of living children 1 Past Pregnancies Del. Date Name GA/Weeks Outcome Route Bth Weight Infant Gen Labor Lgth Anesthesia Del Locatn Provider FOB 12/01/19 Elke 39 live - full term 7lbs 2oz Female 10 h ours epidural [facility] [place] Delivery Date: 12/01/19 Last Updated by: Kelsey Torres uterine atony Visit Details Expected Delivery Route/Plan Labor Preferences- CB/BF classes: no labor support person: Atlee labor intervention preferences: [] pain management options preferred: [] cut cord/dad catch: no : yes PP control planned: discussed discussed possible routes of delivery and associated risks: special requests: [] Plans Covid status: counseled regarding risk of covid in vs vaccination and declined vaccination Flu vaccine: decline Tdap vaccine: decline Rhogam: na LARC form signed: yes Problem list reviewed and updated with the most current plan of care details and appropriate orders placed. Relevant counseling for the gestational age provided. Continue routine care and follow up unless otherwise noted in visit notes/problem list details OB Flowsheet Initial Weight: Not Recorded Date -?-?-?-?-?-?-?-?-?-?-?-?- EGA Weight BP Urine Prot -?-?-?-?-?-?-?-?-?-?-?-?- Glucose FHR FuHt Pres Dilation -?-?-?-?-?-?-?-?-?-?-?-?- Effaced St Visit Note 05/06/21 -?-?-?-?-?-?-?-?-?-?-?-?- 10w 1d 141 lb 120/80 -?-?-?-?-?-?-?-?-?-?-?-?- -?-?-?-?-?-?-?-?--?-?-?-?- JV- CRL measures 10 weeks 4 days and within normal standard deviation of LMP. RADHA is per LMP on 12/01/2021 06/04/21 -?-?-?-?-?-?-?-?-?-?-?-?- 14w 2d 142 lb 116/66 Negative -?-?-?-?-?-?-?-?-?-?-?-?- Negative 153 -?-?-?-?-?-?-?-?-?-?-?-?- -No Vb, LOF. Feels well. Will do limited PNL today 07/02/21 -?-?-?-?-?-?-?-?-?-?-?-?- 18w 2d 144 lb 6 oz 122/74 Nega tive -?-?-?-?-?-?-?-?-?-?-?-?- Negative 147 -?-?-?-?-?-?-?-?-?-?-?-?- MH-No VB, LOF. F eeling flutters. Anatomy [facility] 07/1007/28/21 -?-?-?-?-?-?-?-?-?-?-?-?- 22w 0d 150 lb 120/72 -?-?-?-?-?-?-?-?-?-?-?-?- 145 -?-?-?-?-?-?-?-?-?-?-?-?- SM- no vb jaylyncedwilliam eddy discussed previa 08/27/21 -?-?-?-?-?-?-?-?-?-?-?-?- 26w 2d 155 lb 8 oz 130/80 Nega tive -?-?-?-?-?-?-?-?-?-?-?-?- Negative 140 -?-?-?-?-?-?-?-?-?-?-?-?- JV-no locarlos harris al bleeding or dec fm. ultrasound in 2 weeks, GCT ordered 09/10/21 -?-?-?-?-?-?-?-?-?-?-?-?- 28w 2d 157 lb 6 oz 126/78 Nega tive -?-?-?-?-?-?-?-?-?-?-?-?- Negative 138 -?-?-?-?-?-?-?-?-?-?-?-?- MH-No Vb, LOF. G omid FM. US this week:previa resolved. 28 wk labs, [facility] 09/23/21 -?-?-?-?-?-?-?-?-?-?-?-?- 30w 1d 158 lb 2 oz 116/70 Nega tive -?-?-?-?-?-?-?-?-?-?-?-?- Negative 133 29 -?-?-?-?-?-?-?-?-?-?-?-?- MH-No VB, LOF. G ood FM. Denies concerns 10/21/21 -?-?-?-?-?-?-?-?-?-?-?-?- 34w 1d 162 lb 112/62 Negative -?-?-?-?-?-?-?-?-?-?-?-?- Negative 130 33 -?-?-?-?-?-?-?-?-?-?-?-?- SM- no vb lof go od fm no reuglar ctx 11/04/21 -?-?-?-?-?-?-?-?-?-?-?-?- 36w 1d 162 lb 120/78 Negative -?-?-?-?-?-?-?-?-?-?-?-?- Negative 160 34 Cephalic -?-?-?-?-?-?-?-?-?-?-?-?- JV- no lof, vagi nal bleeding, or dec fm. consider ultrasound next week for KIRSTY or growth if measurin more than3 cm off from GA. GBS collected. 11/12/21 -?-?-?-?-?-?-?-?-?-?-?-?- 37w 2d 164 lb 112/82 Negative -?-?-?-?-?-?-?-?-?-?-?-?- Negative 160 35 Cephalic -?-?-?-?-?-?-?-?-?-?-?-?- JV- KIRSTY today 12 . pt reassured. no lof ,vaginal bleeding, or dec fm. 11/18/21 -?-?-?-?-?-?-?-?-?-?-?-?- 38w 1d 162 lb 8 oz 120/84 Nega tive -?-?-?-?-?-?-?-?-?-?-?-?- Negative 145 36.5 Cephalic -?-?-?-?-?-?-?-?-?-?-?-?- JV- no lof, vagi nal bleeding, or dec fm. no complaints today. declined pelvic exam. 11/25/21 -?-?-?-?-?-?-?-?-?-?-?-?- 39w 1d 161 lb 2 oz 128/80 Nega tive -?-?-?-?-?-?-?-?-?-?-?-?- Negative 130 38 Cephalic 2 -?-?-?-?-?-?-?-?-?-?-?-?- 60 -1 SM- no vb lof good fm no regular ctx 12/01/21 -?-?-?-?-?-?-?-?-?--?-?-?- 40w 0d 156 lb 11.979 oz 119 /72 106/55 134/74 135/82 128/88 126/81 107/52 100/59 96/52 100/55 97/53 102/58 98/50 102/55 100/55 101/55 98/53 109/58 105/62 125/56 138/88 -?-?-?-?-?-?-?-?-?-?-?-?- -?-?-?-?-?-?-?-?-?-?-?-?- NST FHR Rate Baby A Baseline: 140 Variability:: Moderate Accelerations:: 15 x 15 Decelerations:: None NST Reactive:: Yes FHR Category:: Category I Uterine Activity:: q3-5 ROS Constitutional Constitutional: Reports systems reviewed and no addt'l complaints, except as documented ENT HEENT: Reports systems reviewed and no addt'l complaints, except as documented Cardiovascular Cardiovascular: Reports systems reviewed and no addt'l complaints, except as documented Respiratory/Chest Respiratory/Chest: Reports systems reviewed and no addt'l complaints, except as documented Gastrointestinal Gastrointestinal: Reports systems reviewed and no addt'l complaints, except as documented and nausea; Denies abdominal pain Genitourinary Genitourinary: Reports systems reviewed and no addt'l complaints, except as documented, contractions Details: present and frequency (regular ) and movement Details: present Musculoskeletal Musculoskeletal: Reports systems reviewed and no addt'l complaints, except as documented Integumentary Integumentary: Reports as per HPI Neurologic Neurologic: Reports systems reviewed and no addt'l complaints, except as documented Endocrine Endocrinology: Reports systems reviewed and no addt'l complaints, except as documented Vital Signs Vital Signs Vital Signs: 12/01/21 00:57 12/01/21 00:57 12/01/21 00:57 Temperature 98.4 F 98.4 F Temperature Source Temporal Pulse Rate Blood Pressure BP Systolic BP Diastolic Pulse Ox 12/01/21 00:59 12/01/21 00:59 12/01/21 01:55 Temperature Temperature Source Pulse Rate 90 Blood Pressure 119/72 106/55 L BP Systolic 119 106 BP Diastolic 72 55 Pulse Ox 12/01/21 01:55 12/01/21 03:06 12/01/21 03:06 Temperature Temperature Source Pulse Rate 89 106 H Blood Pressure BP Systolic BP Diastolic Pulse Ox 97 12/01/21 03:09 12/01/21 03:09 12/01/21 03:11 Temperature Temperature Source Pulse Rate 98 95 Blood Pressure 134/74 H BP Systolic 134 BP Diastolic 74 Pulse Ox 12/01/21 03:11 12/01/21 03:16 12/01/21 03:16 Temperature Temperature Source Pulse Rate 106 H Blood Pressure 135/82 H BP Systolic 135 BP Diastolic 82 Pulse Ox 98 12/01/21 03:16 12/01/21 03:16 12/01/21 03:19 Temperature Temperature Source Pulse Rate 105 H Blood Pressure 128/88 H BP Systolic 128 BP Diastolic 88 Pulse Ox 99 12/01/21 03:19 12/01/21 03:21 12/01/21 03:21 Temperature Temperature Source Pulse Rate 115 H 101 H Blood Pressure BP Systolic BP Diastolic Pulse Ox 97 12/01/21 03:24 12/01/21 03:24 12/01/21 03:26 Temperature Temperature Source Pulse Rate 96 99 Blood Pressure 126/81 H BP Systolic 126 BP Diastolic 81 Pulse Ox 12/01/21 03:26 12/01/21 03:31 12/01/21 03:31 Temperature Temperature Source Pulse Rate 92 Blood Pressure 107/52 L BP Systolic 107 BP Diastolic 52 Pulse Ox 97 12/01/21 03:31 12/01/21 03:34 12/01/21 03:34 Temperature Temperature Source Pulse Rate 91 Blood Pressure 100/59 L BP Systolic 100 BP Diastolic 59 Pulse Ox 97 12/01/21 03:36 12/01/21 03:36 12/01/21 03:39 Temperature Temperature Source Pulse Rate 94 Blood Pressure 96/52 L BP Systolic 96 BP Diastolic 52 Pulse Ox 97 12/01/21 03:39 12/01/21 03:41 12/01/21 03:41 Temperature Temperature Source Pulse Rate 91 82 Blood Pressure BP Systolic BP Diastolic Pulse Ox 98 12/01/21 03:44 12/01/21 03:44 12/01/21 03:46 Temperature Temperature Source Pulse Rate 88 79 Blood Pressure 100/55 L BP Systolic 100 BP Diastolic 55 Pulse Ox 12/01/21 03:46 12/01/21 03:49 12/01/21 03:49 Temperature Temperature Source Pulse Rate 87 Blood Pressure 97/53 L BP Systolic 97 BP Diastolic 53 Pulse Ox 98 12/01/21 03:51 12/01/21 03:51 12/01/21 03:54 Temperature Temperature Source Pulse Rate 94 Blood Pressure 102/58 L BP Systolic 102 BP Diastolic 58 Pulse Ox 98 12/01/21 03:54 12/01/21 03:56 12/01/21 03:56 Temperature Temperature Source Pulse Rate 79 80 Blood Pressure BP Systolic BP Diastolic Pulse Ox 100 12/01/21 04:00 12/01/21 04:00 12/01/21 04:01 Temperature Temperature Source Pulse Rate 83 85 Blood Pressure 98/50 L BP Systolic 98 BP Diastolic 50 Pulse Ox 12/01/21 04:01 12/01/21 04:05 12/01/21 04:05 Temperature Temperature Source Pulse Rate 85 Blood Pressure 102/55 L BP Systolic 102 BP Diastolic 55 Pulse Ox 100 12/01/21 04:06 12/01/21 04:06 12/01/21 04:10 Temperature Temperature Source Pulse Rate 84 Blood Pressure 100/55 L BP Systolic 100 BP Diastolic 55 Pulse Ox 100 12/01/21 04:10 12/01/21 04:11 12/01/21 04:11 Temperature Temperature Source Pulse Rate 89 88 Blood Pressure BP Systolic BP Diastolic Pulse Ox 100 12/01/21 04:16 12/01/21 04:16 12/01/21 04:16 Temperature Temperature Source Pulse Rate 87 89 Blood Pressure 101/55 L BP Systolic 101 BP Diastolic 55 Pulse Ox 12/01/21 04:16 12/01/21 04:20 12/01/21 04:20 Temperature Temperature Source Pulse Rate 91 Blood Pressure 98/53 L BP Systolic 98 BP Diastolic 53 Pulse Ox 100 12/01/21 04:21 12/01/21 04:21 12/01/21 04:24 Temperature Temperature Source Pulse Rate 100 82 Blood Pressure BP Systolic BP Diastolic Pulse Ox 100 12/01/21 04:24 12/01/21 05:03 12/01/21 05:03 Temperature Temperature Source Pulse Rate 107 H Blood Pressure 109/58 L BP Systolic 109 BP Diastolic 58 Pulse Ox 91 12/01/21 05:03 12/01/21 06:09 07/04/22 06:09 Temperature 97.5 F L 97.9 F Temperature Source Pulse Rate Blood Pressure 105/62 BP Systolic 105 BP Diastolic 62 Pulse Ox 12/01/21 06:09 12/01/21 07:17 12/01/21 07:17 Temperature Temperature Source Pulse Rate 90 105 H Blood Pressure 125/56 H BP Systolic 125 BP Diastolic 56 Pulse Ox 12/01/21 07:17 12/01/21 07:17 12/01/21 07:17 Temperature 98.1 F Temperature Source Temporal Pulse Rate Blood Pressure BP Systolic BP Diastolic Pulse Ox 100 12/01/21 07:52 12/01/21 07:52 12/01/21 07:51 Temperature Temperature Source Pulse Rate 107 H Blood Pressure 138/88 H BP Systolic 138 BP Diastolic 88 Pulse Ox 98 12/01/21 07:56 12/01/21 07:56 Temperature Temperature Source Pulse Rate 109 H Blood Pressure BP Systolic BP Diastolic Pulse Ox 97 Weight Weight: 156 lb 11.979 oz Body Mass Index (BMI) 28.6 Physical Exam Const alert, oriented x3 and healthy appearing Constitutional Narrative: uncomfortable with contractions HEENT normocephalic and moist oral mucous membranes Head and Scalp: atraumatic Neck full ROM, no lymphadenopathy, supple and thyroid normal General: trachea midline Thyroid: thyroid normal Lymph Lymphatic: no lymphadenopathy noted Chest inspection of chest normal Resp normal respiratory effort Cardio regular rate GI normal to inspection, nondistended, normoactive bowel sounds, soft to palpation and non-tender Inspection: gravid external exam normal Bimanual Exam - Vag & Uterus: uterus non-tender Manual OB Exam: estimated gestational size appropriate, presentation cephalic, dilated, effaced and station Extremity normal to inspection General Extremity: Negative for edema Skin no rashes or lesions noted Neuro deep tendon reflexes 2+ bilaterally Motor Exam: strength 5/5 throughout and clonus absent Psych mental status grossly normal Labs Labs Labs: Blood Type O POSITIVE Antibody Screen NEGATIVE Hct 38.2 % (37-47) Hgb 12.7 g/dL (12.0-15.0) Obstetrics US Syphilis Total Ab Pending Rubella IgG Antibody Reactive (Nonreactive) Hep Bs Antigen Non-Reactive (Nonreactive) Chlamydia DNA (KAYLA) Negative (Negative) Neisseria gonorrhoeae DNA (KAYLA) Negative (Negative) HIV 1&2 Antibody Non-Reactive (Nonreactive) Glucose 1 Hr 50 gm 119 mg/dL (70-140) Rhogam given: No Assessment & Plan (1) Supervision of other normal : COMMENT: PRR RADHA: 12/01/21 surprise PC:Frances: Monica (2) : QUALIFIERS: Weeks of gestation: 39 weeks Qualified Code(s): Z3A.39 - 39 weeks gestation of COMMENT: GBS neg., declines genetic and carrier; SP labs. Anatomy US normal PLAN: Plan admit IAL epidural now
--- NOTE | 2021-12-01 07:59 | OP.PCM_ITS ---
Maternal Data Information RADHA Calculator Estimated Delivery Date Method Current Current Estimate 12/01/21 LMP (Certain) 40w 0d Other Estimates 11/28/21 Ultrasound #1 40w 3d Vaginal Delivery Operative Information Date of Procedure: 12/01/21 Pre-Operative Diagnosis: IAL Post-Operative Diagnosis: same Surgery / Procedure Performed: Spontaneous Vaginal Delivery Type of Anesthesia: Epidural Special Medications: none Estimated Blood Loss: 200 Fluids Replaced: crystalloid Findings Description of Procedure: Patient began pushing and delivered the head in the JUDSON presentation. The head was delivered atraumatically . The anterior and posterior shoulders delivered without complication followed by the rest of the infant and the infant was placed on the maternal abdomen. Delayed cord clamping was employed for approximately 60 seconds. Cord was clamped and cut and gentle traction was applied to the cord and the placenta delivered spontaneously immediately following it was noted to be intact with three-vessel cord. The perineum and vagina were inspected and noted to have a second degree laceration repaired in the usual fashion with 3-0 rapide. EBL was 200. Patient and tolerated delivery well. Presentation: JUDSON Amniotic Membrane Rupture Type: Artificial Amniotic Fluid Description: Clear Placental Delivery Description: Spontaneous Placenta Disposition: [facility] Cord Vessel Description: 3 Vessels Cord Entanglement: None A Gender: Male Delayed Cord Clamping: Yes Post Vaginal Delivery Medications Given After Delivery: IV Pitocin Episiotomy Description: None Laceration: None Complication Complications: None Procedures Urinary/Genital [id number]: [id number] Vaginal Delivery [facility]
--- NOTE | 2021-12-01 08:02 | DCINST_ITS ---
Discharge Instructions Diet Discharge Diet: No restrictions Activity Discharge Activity: Return to Normal Activity, May Drive, May Shower and May Take a Tub Bath (in 4 weeks) May resume sexual activity in: 6-8 weeks (after seen by OB provider) Weight Bearing Status: Full weight bearing Lifting Restrictions: none Dressing / Incision Call your doctor if you observe: Fever of 101 or Higher, Inability to urinate, Using more than 1 pad per hour (for more than 2 hours in a row or more), Shortness of breath, Dizziness, Chest pain and - (headache not controlled with tylenol, change in vision) Follow Up Care When: in 6 weeks for visit, call the office to make the appointment. If you had elevated blood pressures call the office to be seen within 1 week. Test Results: Test results from this visit will be discussed in further detail at your follow- up appointment, if applicable. Discharge Plan Admission Admit Date/Time: 12/01/21 01:52 Attending Provider: Katy Gonzalez Primary Care Provider: Care Physician,Robyn Primary Discharge Orders/Prescriptions Prescriptions: No Action vitamin#30 30 mg iron-10 mg iron-folic acid 1 mg-omg3 capsule 30 mg iron-10 mg iron-1 mg capsule 1 cap PO DAILY Referrals / Follow Up: Care Physician,No Primary [Primary Care Provider] - Disposition Disposition (needs filled in before D/C Order can be placed): Home, Self Care
[2021-12-01 08:22] LABS: Rubella IgG Reactive (Nonreactive); Syphilis Antibodies Non-reactive
[2021-12-01 08:42] LABS: HIV - WCH Non-Reactive (Nonreactive); Hepatitis B Surface Antigen Non-Reactive (Nonreactive); Hepatitis C Antibody Non-Reactive (Nonreactive)
--- NOTE | 2021-12-01 10:10 | NURSING ---
Epidural catheter removed, blue tip intact.
--- NOTE | 2021-12-01 11:12 | NURSING ---
Report given to Tanvi RN, taking over pt care at this time.
[2021-12-01] MEDS: Naproxen 500 MG Tablet PO ×2 (14:31→22:49)
[2021-12-02] VITALS (8 sets, daily range): BP systolic 100–105; BP diastolic 55–60; PULSE 75–91; RESP 14–17; TEMP 36.2–36.5; O2SAT 97–98
--- NOTE | 2021-12-02 07:51 | PCM.PN.OB ---
Subjective Subjective Patient doing well without complaints. Tolerating PO. Ambulating and voiding without difficulty. Feeding well. Denies chest pain, shortness of breath, calf pain/swelling, fevers, chills, lightheadedness. Objective Data Objective Data Vital Signs: Vital Signs Temp Pulse Resp BP Pulse Ox O2 Del Method 97.3 F L 81 16 100/55 L 97 Room Air 12/02/21 03:57 12/02/21 03:57 12/02/21 03:57 12/02/21 03:57 12/02/21 03:57 12/02/21 03:57 Oxygen Delivery Method Room Air Weight: 156 lb 11.979 oz Body Mass Index (BMI) 28.6 Intake & Output: Intake and Output for Last 24 Hours 11/30/21 12/01/21 12/02/21 23:59 23:59 23:59 Intake Total 2692.65 / 2692.65 Output Total 900 / 900 Balance 1792.65 / 1792.65 Lab / Micro Data Result Diagrams: 12/01/21 02:05 Labs: Laboratory Results - last 24 hr 12/01/21 02:05: Syphilis Total Ab Non-reactive, Rubella IgG Antibody Reactive 12/01/21 02:05: Hep Bs Antigen Non-Reactive, Hepatitis C Antibody Non-Reactive, HIV 1&2 Antibody Non-Reactive Micro: Microbiology 12/01/21 02:00 Nasal Secretion SARS-CoV-2 Antigen (Rapid) - Final Physical Exam Const alert and oriented x3 HEENT normocephalic Eyes PERRL Neck full ROM Resp normal respiratory effort GI soft to palpation GI Narrative: FF below U Assessment & Plan (1) Vaginal delivery: COMMENT: SM boy Miles 40 IAL PLAN: Plan s/p PPD # 1 1. routine post delivery care 2. breast feeding- support given 3. rh positive 4. rubella immune 5. Home today
[2021-12-02] MEDS: Senna/Docusate Sodium 1 Tablet PO (07:58)
[2021-12-02] MEDS: Famotidine 20 MG Tablet 40 MG PO (08:05)
--- NOTE | 2021-12-06 14:00 | NURSING ---
No answer on follow up phone call, left voicemail.
== END 2021-12-02 14:45 | disposition home or self-care (01) | DRG 807 ==
LOC: WPOUT 01:55 → WP 01:55
PROVIDERS: Admitting Provider Obstetrics & Gynecology; Visit Provider Obstetrics & Gynecology
DX: O70.1 Second degree perineal laceration during delivery (principal); Z37.0 Single live birth; O26.23 Pregnancy care for patient with recurrent pregnancy loss, third trimester; Z3A.39 39 weeks gestation of pregnancy
CPT/HCPCS: 59025; 59050; 84112; 85025; 86703; 86762; 86780; 86803; 86850; 86900; 86901; 87340; 87426; 99218; J7120; A4216; G0378; J2405

== ENCOUNTER → 2022-01-15 | Outpatient (CLI) | payer OTHER, SELFPAY ==
[2022-01-23 18:12] LABS: HPV Reflexed? NOT INDICATED
== END | disposition home or self-care (01) ==
LOC: LABSPEC 12:41
PROVIDERS: Visit Provider Obstetrics & Gynecology
DX: Z12.4 Encounter for screening for malignant neoplasm of cervix (principal)
CPT/HCPCS: 88175; G0145

== ENCOUNTER → 2023-08-06 | Outpatient (CLI) | payer OTHER, SELFPAY ==
[2023-08-09 22:06] LABS: Chlamydia By Nucleic Acid AMP Negative (Negative); Gonococcus By Nucleic Acid AMP Negative (Negative)
== END | disposition home or self-care (01) ==
PROVIDERS: Referring Provider Obstetrics & Gynecology; Visit Provider Obstetrics & Gynecology
DX: Z34.90 Encounter for supervision of normal pregnancy, unspecified, unspecified trimester (principal)
CPT/HCPCS: 87086; 87491; 87591

== ENCOUNTER → 2023-10-11 | Outpatient (CLI) | payer SELFPAY ==
[2023-10-11 10:15] LABS: Absolute Lymphocyte Count 1.56 X10^3/uL (0.83-4.51); Basophil# 0.03 X10^3/uL; Basophil% 0.4 % (0-1); Eosinophil# 0.13 X10^3/uL; Eosinophils% 1.6 % (0-5); Hematocrit 37.2 % (37-47); Lymphocyte # 1.56 X10^3/ul (0.83-4.51); Mean Corp Hgb Conc 34.9 g/dL (32-36); Mean Corpuscular Hgb 31.5 pg (27.0-32.0); Mean Corpuscular Volume 90.1 fL (81-99); Mean Platelet Vol. 8.8 fl (6.2-12.0); Monocyte% 6.1 % (0-10); NRBC Flagged by Analyzer 0 % (0-5); Neutrophil # 5.95 X10^3/uL (2.7-7.7); Neutrophil % 72.2 % (47-70); Platelet Count 286 K/mm3 (150-450); RBC Distribution Width CV 13.6 % (11.6-14.6); RBC Distribution Width SD 43.9 fl (35.1-43.9); Red Blood Count 4.13 M/mm3 (4.2-5.4); White Blood Count 8.2 K/mm3 (4.4-11.0)
[2023-10-11 18:09] LABS: HIV - WCH Non-Reactive (Nonreactive); Hepatitis B Surface Antigen Non-Reactive (Nonreactive); Hepatitis C Antibody Non-Reactive (Nonreactive); Rubella IgG Reactive (Nonreactive); Syphilis Antibodies Non-reactive
== END | disposition home or self-care (01) ==
PROVIDERS: Obstetrics & Gynecology; Referring Provider Obstetrics & Gynecology; Visit Provider Obstetrics & Gynecology
DX: Z34.90 Encounter for supervision of normal pregnancy, unspecified, unspecified trimester (principal)
CPT/HCPCS: 36415; 85025; 86703; 86762; 86780; 86803; 86850; 86900; 86901; 87340

== ENCOUNTER → 2023-10-26 | Outpatient (CLI) | payer SELFPAY, OTHER ==
--- NOTE | 2023-10-26 08:15 | US_ITS ---
HISTORY: anatomy. LMP 06/13/2023. TECHNIQUE: Transabdominal pelvic ultrasound was performed. 141 images. COMPARISON: None. FINDINGS: INTRAUTERINE GESTATION(s): Single. PRESENTATION: Cephalic. HEART MOTION: 157 bpm. PLACENTA: Anterior, grade 0. No placenta previa. CERVIX: 3.2 cm long and closed. AMNIOTIC FLUID INDEX (KIRSTY): Subjectively within normal limits. Largest fluid pocket 5.4 cm. biometry- BIPARIETAL DIAMETER: 4.5 cm, corresponding to 19 weeks 4 days. HEAD CIRCUMFERENCE: 16.6 cm, corresponding to 19 weeks 2 days. ABDOMINAL CIRCUMFERENCE: 13.4 cm, corresponding to 18 weeks 6 days. FEMUR LENGTH: 2.9 cm, corresponding to 19 weeks 0 days. ESTIMATED GESTATIONAL AGE: 19 weeks 2 days. ESTIMATED DUE DATE (RADHA): 03/19/2024. ESTIMATED WEIGHT: 268 g. 29th percentile. ANATOMY: Anterior and posterior cranial fossa, orbits, nose/lips, facial profile, spine, upper and lower extremities, four-chamber heart, three-vessel cord insertion, stomach, kidneys, and bladder visualized. US/OB Anatomy Scan IMPRESSION: Single living intrauterine with an estimated gestational age of 19 weeks 2 days. Unremarkable anatomic survey. Electronically Signed: Danya Pacheco MD at 14:30 EDT ,
== END | disposition home or self-care (01) ==
PROVIDERS: Referring Provider Obstetrics & Gynecology; Visit Provider Obstetrics & Gynecology
DX: Z34.90 Encounter for supervision of normal pregnancy, unspecified, unspecified trimester (principal)
CPT/HCPCS: 76805; 76817

== ENCOUNTER → 2023-11-18 | Outpatient (CLI) | payer SELFPAY ==
--- NOTE | 2023-11-18 07:26 | US_ITS ---
STUDY: SUPERFICIAL ULTRASOUND - RIGHT AXILLA. REASON FOR EXAM: Female, 23 years old. Axillary lump TECHNIQUE: A superficial ultrasound was performed with real-time and static mitchell-scale imaging. COMPARISON: None. FINDINGS: Sonographic imaging of the right axillary region was obtained. The palpable abnormality corresponds to a 2.6 cm x 1.1 cm x 0.6 cm heterogeneous soft tissue density with increased vascularity. This may represent an inflamed lymph node with the patient''s history of recent shingles. A follow-up sonogram in 3 months is recommended. US/Ext Non Vasc Limited/Soft Tiss IMPRESSION: The palpable abnormality corresponds with 2.6 cm x 1.1 cm x 0.6 cm heterogeneous soft tissue density with increased vascularity. With the patient''s history of shingles, this may represent an enlarged lymph node. Follow-up in 3 months recommended. Electronically Signed: Rojelio Wise MD at 13:56 EDT ,
== END | disposition home or self-care (01) ==
LOC: US 07:26
PROVIDERS: Referring Provider Obstetrics & Gynecology; Visit Provider Obstetrics & Gynecology
DX: R22.30 Localized swelling, mass and lump, unspecified upper limb (principal)
CPT/HCPCS: 76882

== ENCOUNTER → 2023-12-28 | Outpatient (CLI) | payer SELFPAY ==
[2023-12-28 11:16] LABS: Absolute Lymphocyte Count 1.59 X10^3/uL (0.83-4.51); Absolute Neutrophil Count 7.2 X10^3/uL (2.0-7.7); Basophil# 0.02 X10^3/uL; Basophil% 0.2 % (0-1); Eosinophil# 0.13 X10^3/uL; Eosinophils% 1.4 % (0-5); Hemoglobin 12.3 g/dL (12.0-15.0); Lymphocyte # 1.59 X10^3/ul (0.83-4.51); Lymphocyte % 16.6 % (19-41); Mean Corp Hgb Conc 35.1 g/dL (32-36); Mean Corpuscular Hgb 33.2 pg (27.0-32.0); Mean Corpuscular Volume 94.3 fL (81-99); Mean Platelet Vol. 8.8 fl (6.2-12.0); Monocyte# 0.55 X10^3/uL; Monocyte% 5.7 % (0-10); NRBC Flagged by Analyzer 0 % (0-5); Neutrophil # 7.15 X10^3/uL (2.7-7.7); Neutrophil % 74.7 % (47-70); Platelet Count 262 K/mm3 (150-450); RBC Distribution Width CV 13.3 % (11.6-14.6); RBC Distribution Width SD 45.7 fl (35.1-43.9); Red Blood Count 3.71 M/mm3 (4.2-5.4); White Blood Count 9.6 K/mm3 (4.4-11.0)
[2023-12-28 11:41] LABS: ALB/GLOB Ratio 0.7 RATIO (0.9-2.4); AST(SGOT) 13 U/L (15-37); Alanine Aminotransfer ALT/SGPT 13 U/L (13-56); Albumin, Serum 2.6 g/dL (3.2-5.0); Alkaline Phosphatase 69 U/L (45-117); Anion Gap 4 (5-15); BUN 5 mg/dL (7-18); BUN/Creat Ratio 11.2 RATIO (10-20); Calcium,Total 8.4 mg/dL (8.5-10.1); Chloride 108 mmol/L (98-107); Creatinine, Serum 0.45 mg/dL (0.55-1.02); EST Glomerular Filtration Rate 180 mL/min (>60); Est Glom Filt Rate - Afr Amer 218 mL/min (>60); Globulin 3.6 g/dL (2.2-4.2); Glucose 120 mg/dL (74-106); Potassium 3.7 mmol/L (3.5-5.1); Protein, Total 6.2 g/dL (6.4-8.2); Sodium Level 136 mmol/L (136-145)
[2023-12-28 11:44] LABS: Glucose Challenge Gest 1H 50g 118 mg/dL (70-140)
[2023-12-28 12:10] LABS: HIV - WCH Non-Reactive (Nonreactive); Syphilis Antibodies Non-reactive
== END | disposition home or self-care (01) ==
LOC: PAVLAB 10:08
PROVIDERS: Advanced Practice Midwife; Referring Provider Obstetrics & Gynecology; Visit Provider Obstetrics & Gynecology
DX: Z34.93 Encounter for supervision of normal pregnancy, unspecified, third trimester (principal)
CPT/HCPCS: 36415; 80053; 82950; 85025; 86703; 86780; 87491; 87591

== ENCOUNTER → 2024-02-24 | Outpatient (CLI) | payer SELFPAY | END | disposition home or self-care (01) | PROVIDERS: Referring Provider Nurse Practitioner Women's Health; Visit Provider Nurse Practitioner Women's Health | DX: Z34.93 Encounter for supervision of normal pregnancy, unspecified, third trimester (principal); Z3A.36 36 weeks gestation of pregnancy | CPT/HCPCS: 87081 ==

== ENCOUNTER 2024-03-13 16:05 | Inpatient (IN) | payer SELFPAY, OTHER ==
[2024-03-13] VITALS (20 sets, daily range): BP systolic 95–139; BP diastolic 52–88; PULSE 101–127; RESP 15–18; TEMP 36.9–37.7; O2SAT 98–100; BMI 30.7
[2024-03-13] MEDS: Lactated Ringers 1,000 ML 999 ML IV ×2 (16:20→19:52)
[2024-03-13 16:44] LABS: Absolute Lymphocyte Count 1.87 X10^3/uL (0.83-4.51); Absolute Neutrophil Count 8.2 X10^3/uL (2.0-7.7); Basophil# 0.04 X10^3/uL; Basophil% 0.4 % (0-1); Eosinophil# 0.18 X10^3/uL; Eosinophils% 1.6 % (0-5); Hematocrit 39.6 % (37-47); Hemoglobin 13.8 g/dL (12.0-15.0); Lymphocyte # 1.87 X10^3/ul (0.83-4.51); Lymphocyte % 16.7 % (19-41); Mean Corp Hgb Conc 34.8 g/dL (32-36); Mean Corpuscular Hgb 32.3 pg (27.0-32.0); Mean Corpuscular Volume 92.7 fL (81-99); Mean Platelet Vol. 9.8 fl (6.2-12.0); Monocyte# 0.81 X10^3/uL; Monocyte% 7.2 % (0-10); NRBC Flagged by Analyzer 0 % (0-5); Neutrophil # 8.15 X10^3/uL (2.7-7.7); Neutrophil % 72.8 % (47-70); Platelet Count 258 K/mm3 (150-450); RBC Distribution Width CV 13.5 % (11.6-14.6); RBC Distribution Width SD 44.7 fl (35.1-43.9); Red Blood Count 4.27 M/mm3 (4.2-5.4); White Blood Count 11.2 K/mm3 (4.4-11.0)
[2024-03-13 17:26] LABS: Fibrinogen 496 mg/dl (203-444)
[2024-03-13] MEDS: Oxytocin 15 Units/NS 250ml 15 UNITS/250 ML IV.SOLN 2 UNITS IV (19:01)
[2024-03-13] MEDS: fentaNYL-bupivacaine (epidural) 100 ML BAG EPIDURAL (20:03)
[2024-03-14] VITALS (23 sets, daily range): BP systolic 94–126; BP diastolic 53–77; PULSE 80–126; RESP 16–20; TEMP 36.1–37.2; O2SAT 96–98
--- NOTE | 2024-03-14 00:59 | HP.PCM.OB_ITS ---
HPI - General General Date of Admission: 03/13/24 HPI Narrative VELIA GRIGGS, is a 24 F who presents due to deceleration in the office, she had an audible decel at the bedside and then had a variable on the monitor. she denies any bleeding or abnormal discharge, had some vaginal odor. she denies any abdominal pain. Maternal Data Information RADHA Calculator Estimated Delivery Date Method Current WG Current Estimate 03/19/24 LMP (Certain) 39w 2d PFSH PFS Medical History (Updated 03/14/24 @ 01:[address] Katy Gonzalez MD) hemorrhage Vaginal delivery Home Medications ?Medication ?Instructions ?Recorded ?Last Taken ?Type vitamin#30 30 mg iron-10 1 cap PO DAILY 05/04/19 11/29/19 History mg iron-folic acid 1 mg-omg3 capsule Allergy/AdvReac Type Severity Reaction Status Date / Time No Known Allergies Allergy Verified 03/13/24 18:38 Surgical History History of appendectomy Social History adopted: No household members: spouse and children housing: house number of children: 2 current occupational status: unemployed current occupation: [employer] current occupational exposures/hazards: No pets and animals: Yes pets and animals: cat(s) and dog(s) history of recent travel: No sexually active: Yes Smoking Status: Never smoker alcohol intake: never substance use type: does not use well-balanced diet: daily or most days caffeine: No eating out: 1-3 times/week during the past year weight has: remained stable what type of physical activity do you participate in: walking and bicycling frequency: 5-6 times per week duration: 15-30 minutes/day sally/buddhist: Orthodoxy seatbelt use: always do you feel safe at home: Yes additional social history: : [place]- House remodeling History 4 Elective abortions Hx Para 2 Spontaneous abortions 1 Hx # Term Pregnancies Ectopic pregnancies Hx # Pregnancies Multiple births # of living children 2 Past Pregnancies Del. Date Name GA/Weeks Outcome Route Bth Weight Infant Gen Labor Lgth Anesthesia Del Locatn Provider FOB 12/01/19 Elke 39 live - full term 7lbs 2oz Female 10 h ours epidural [facility] Atlee 09/28/21 5 spontaneous 12/01/21 Miles 40 live - full term Male [facility] Dr. Gonzalez Delivery Date: 12/01/19 Last Updated by: Kelsey Torres uterine atony Visit Details Expected Delivery Route/Plan Labor Preferences- CB/BF classes: no labor support person: Atlee labor intervention preferences: [] pain management options preferred: epidural if requested cut cord/dad catch: no : yes PP control planned: discussed discussed possible routes of delivery and associated risks: [] special requests: [] Plans Covid status: [] Flu vaccine: [] Tdap vaccine: declines Rhogam: na LARC form signed: yes Problem list reviewed and updated with the most current plan of care details and appropriate orders placed. Relevant counseling for the gestational age provided. Continue routine care and follow up unless otherwise noted in visit notes/problem list details OB Flowsheet Initial Weight: Not Recorded Date -?-?-?-?-?-?-?-?-?-?-?-?- EGA Weight BP Urine Prot -?-?-?-?-?-?-?-?-?-?-?-?- Glucose FHR FuHt Pres Dilation -?-?-?-?-?-?-?-?-?-?-?-?- Effaced St Visit Note 08/06/23 -?-?-?-?-?-?-?-?-?-?-?-?- 7w 5d 146 lb 4 oz 121/78 -?-?-?-?-?-?-?-?-?-?-?-?- 170 -?-?-?-?-?-?-?-?-?-?-?-?- SM- CRL 1.4cm co ns with LMP 09/15/23 -?-?-?-?-?-?-?-?-?-?-?-?- 13w 3d 148 lb 6 oz 120/75 Nega tive -?-?-?-?-?-?-?-?-?-?-?-?- Negative 156 -?-?-?-?-?-?-?-?-?-?-?-?- JV- no complaint s today. still needs new ob labs. wants to do this next visit. 10/11/23 -?-?-?-?-?-?-?-?-?-?-?-?- 17w 1d 148 lb 4 oz 125/83 Nega tive -?-?-?-?-?-?-?-?-?-?-?-?- Negative 146 -?-?-?-?-?-?-?-?-?-?-?-?- JV- pt is being treated for shingles with valtrex. has some axilla pain. no masses or enlarged lymph nodes felt. anatomy scan is scheduled. going down today to lab for new ob labs. 11/12/23 -?-?-?-?-?-?-?-?-?-?-?-?- 21w 5d 154 lb 8 oz 133/81 Nega tive -?-?-?-?-?-?-?-?-?-?-?-?- Negative 145 -?-?-?-?-?-?-?-?-?-?-?-?- JV- no lof, vagi nal bleeding, or dec fm. pt has a 4 cm axillary mass. Plan to order ultrasound for more info. 12/06/23 -?-?-?-?-?-?-?-?-?-?-?-?- 25w 1d 157 lb 4 oz 110/72 Nega tive -?-?-?-?-?-?-?-?-?-?-?-?- Negative 140 25 -?-?-?-?-?-?-?-?-?-?-?-?- KW- no vb/ cramp ing. good fm. US came back as inflamed lymph node. 28 week labs discussed. 12/28/23 -?-?-?-?-?-?-?-?-?-?-?-?- 28w 2d 160 lb 105/68 Negative -?-?-?-?-?-?-?-?-?-?-?-?- Negative 151 27 -?-?-?-?-?-?-?-?-?-?-?-?- MH-No VB, LOF. g ood Fm. Larc. Declines tdap. 28 wk labs pending 01/12/24 -?-?-?-?-?-?-?-?-?-?-?-?- 30w 3d 163 lb 8 oz 122/72 Nega tive -?-?-?-?-?-?-?-?-?-?-?-?- Negative 135 30 -?-?-?-?-?-?-?-?-?-?-?-?- JV- no lof, vagi nal bleeding, or dec fm. normal 28 week labs. 01/27/24 -?-?-?-?-?-?-?-?-?-?-?-?- 32w 4d 165 lb 120/77 Negative -?-?-?-?-?-?-?-?-?-?-?-?- Negative 135 32 Transverse -?-?-?-?-?-?-?-?-?-?-?-?- - no vb lof go od fm no regular ctx 02/10/24 -?-?-?-?-?-?-?-?-?-?-?-?- 34w 4d 164 lb 112/73 Negative -?-?-?-?-?-?-?-?-?-?-?-?- Negative 130 33 Cephalic -?-?-?-?-?-?-?-?-?-?-?-?- kw- no vb/lof/ct x. good fm. cephalic on handheld US. no concerns 02/24/24 -?-?-?-?-?-?-?-?-?-?-?-?- 36w 4d 168 lb 4 oz 110/70 Nega tive -?-?-?-?-?-?-?-?-?-?-?-?- Negative 132 35 Cephalic -?-?-?-?-?-?-?-?-?-?-?-?- -No VB, LOF. G ood FM. No CTX. GBS done. Declined pelvic exam 03/02/24 -?-?-?-?-?-?-?-?-?-?-?-?- 37w 4d 166 lb 6 oz 118/80 Nega tive -?-?-?-?-?-?-?-?-?-?-?-?- Negative 145 37 Cephalic -?-?-?-?-?-?-?--?-?-?-?-?- JV- patient is a sking for a doc for delivery. no lof, vaginal bleeding, or dec fm. 03/08/24 -?-?-?-?-?-?-?-?-?-?-?-?- 38w 3d 169 lb 4 oz 124/80 Nega tive -?-?-?-?-?-?-?-?-?-?-?-?- Negative 140 35 Cephalic 2 -?-?-?-?-?-?-?-?-?-?-?-?- 50 -1 JV- low fe melonie station today. patient not feeling great. has some nausea. no lof, vaginal bleeding, or dec fm. 03/13/24 -?-?-?-?-?-?-?-?-?-?-?-?- 39w 1d 168 lb 6 oz 120/72 Nega tive -?-?-?-?-?-?-?-?-?-?-?-?- Negative 126 Cephalic 2 -?-?-?-?-?-?-?-?-?-?-?-?- 50 -1 -work in for vaginal odor. States less FM but then has normal kick counts. Noted decrease FHT w/movement on doppler. NST: -work in for vaginal odor. States less FM but then has normal kick counts. Noted decrease FHT w/movement on doppler. NST: audible decel noted right after on monitor and patient sent to per Dr Gonzalez NST FHR Rate Baby A Baseline: 140 Variability:: Moderate Accelerations:: 15 x 15 Decelerations:: Variable NST Reactive:: Yes FHR Category:: Category II Uterine Activity:: irregular ROS Constitutional Constitutional: Reports systems reviewed and no addt'l complaints, except as documented Eyes Eyes: Denies change in vision ENT HEENT: Reports systems reviewed and no addt'l complaints, except as documented; Denies headache(s) Cardiovascular Cardiovascular: Reports systems reviewed and no addt'l complaints, except as documented; Denies chest pain or dyspnea Respiratory/Chest Respiratory/Chest: Reports systems reviewed and no addt'l complaints, except as documented Gastrointestinal Gastrointestinal: Reports systems reviewed and no addt'l complaints, except as documented; Denies abdominal pain Genitourinary Genitourinary: Reports systems reviewed and no addt'l complaints, except as documented, contractions Details: present (irregular) and movement Details: present; Denies dysuria or genital lesions Musculoskeletal Musculoskeletal: Reports systems reviewed and no addt'l complaints, except as documented Neurologic Neurologic: Reports systems reviewed and no addt'l complaints, except as documented Endocrine Endocrinology: Reports systems reviewed and no addt'l complaints, except as documented Vital Signs Vital Signs Vital Signs: 03/13/24 16:42 03/13/24 16:42 03/13/24 16:42 Temperature Temperature Source Pulse Rate 120 H Respiratory Rate Blood Pressure 123/88 H BP Systolic 123 BP Diastolic 88 Pulse Ox 98 03/13/24 16:42 03/13/24 16:42 03/13/24 16:42 Temperature 99.7 F H Temperature Source Temporal Pulse Rate Respiratory Rate 16 Blood Pressure BP Systolic BP Diastolic Pulse Ox 03/13/24 19:02 03/13/24 19:02 03/13/24 19:02 Temperature Temperature Source Pulse Rate 101 H Respiratory Rate 16 Blood Pressure 132/80 H BP Systolic 132 BP Diastolic 80 Pulse Ox 03/13/24 19:05 03/13/24 19:05 03/13/24 19:05 Temperature Temperature Source Temporal Pulse Rate 110 H Respiratory Rate Blood Pressure BP Systolic BP Diastolic Pulse Ox 99 03/13/24 19:05 03/13/24 19:45 03/13/24 19:45 Temperature 98.4 F Temperature Source Pulse Rate 116 H Respiratory Rate Blood Pressure BP Systolic BP Diastolic Pulse Ox 98 03/13/24 19:53 03/13/24 19:53 03/13/24 19:53 Temperature Temperature Source Pulse Rate 112 H 110 H Respiratory Rate Blood Pressure 130/81 H BP Systolic 130 BP Diastolic 81 Pulse Ox 03/13/24 19:53 03/13/24 19:53 03/13/24 19:58 Temperature Temperature Source Pulse Rate Respiratory Rate 18 Blood Pressure 139/82 H BP Systolic 139 BP Diastolic 82 Pulse Ox 100 03/13/24 19:58 03/13/24 19:58 03/13/24 19:58 Temperature Temperature Source Pulse Rate 114 H 112 H Respiratory Rate Blood Pressure BP Systolic BP Diastolic Pulse Ox 98 03/13/24 19:58 03/13/24 20:03 03/13/24 20:03 Temperature Temperature Source Pulse Rate 115 H Respiratory Rate 18 Blood Pressure 119/75 BP Systolic 119 BP Diastolic 75 Pulse Ox 03/13/24 20:03 03/13/24 20:03 03/13/24 20:03 Temperature Temperature Source Pulse Rate 111 H Respiratory Rate 18 Blood Pressure BP Systolic BP Diastolic Pulse Ox 98 03/13/24 20:08 03/13/24 20:08 03/13/24 20:08 Temperature Temperature Source Pulse Rate 127 H 117 H Respiratory Rate Blood Pressure 115/74 BP Systolic 115 BP Diastolic 74 Pulse Ox 03/13/24 20:08 03/13/24 20:08 03/13/24 20:13 Temperature Temperature Source Pulse Rate Respiratory Rate 16 Blood Pressure 110/71 BP Systolic 110 BP Diastolic 71 Pulse Ox 98 03/13/24 20:13 03/13/24 20:13 03/13/24 20:13 Temperature Temperature Source Pulse Rate 117 H Respiratory Rate 16 Blood Pressure BP Systolic BP Diastolic Pulse Ox 98 03/13/24 20:18 03/13/24 20:18 03/13/24 20:18 Temperature Temperature Source Pulse Rate 112 H Respiratory Rate 18 Blood Pressure BP Systolic BP Diastolic Pulse Ox 98 03/13/24 20:19 03/13/24 20:19 03/13/24 20:23 Temperature Temperature Source Pulse Rate 113 H Respiratory Rate Blood Pressure 110/66 119/74 BP Systolic 110 119 BP Diastolic 66 74 Pulse Ox 03/13/24 20:23 03/13/24 20:23 03/13/24 20:23 Temperature Temperature Source Pulse Rate 127 H 109 H Respiratory Rate 16 Blood Pressure BP Systolic BP Diastolic Pulse Ox 03/13/24 20:23 03/13/24 20:24 03/13/24 20:24 Temperature 99.9 F H Temperature Source Temporal Pulse Rate Respiratory Rate Blood Pressure BP Systolic BP Diastolic Pulse Ox 100 03/13/24 20:28 03/13/24 20:28 03/13/24 20:28 Temperature Temperature Source Pulse Rate 116 H 116 H Respiratory Rate Blood Pressure 115/72 BP Systolic 115 BP Diastolic 72 Pulse Ox 03/13/24 20:28 03/13/24 20:28 03/13/24 20:54 Temperature Temperature Source Pulse Rate 115 H Respiratory Rate 16 Blood Pressure BP Systolic BP Diastolic Pulse Ox 99 03/13/24 20:54 03/13/24 21:01 03/13/24 21:01 Temperature Temperature Source Pulse Rate 103 H Respiratory Rate Blood Pressure 95/67 BP Systolic 95 BP Diastolic 67 Pulse Ox 100 03/13/24 21:01 03/13/24 21:01 03/13/24 21:49 Temperature 98.6 F 99.9 F H Temperature Source Pulse Rate Respiratory Rate 15 Blood Pressure BP Systolic BP Diastolic Pulse Ox 03/13/24 21:49 03/13/24 21:49 03/13/24 21:49 Temperature Temperature Source Temporal Pulse Rate 103 H Respiratory Rate Blood Pressure 117/64 BP Systolic 117 BP Diastolic 64 Pulse Ox 03/13/24 21:49 03/13/24 21:49 03/13/24 22:57 Temperature 99.7 F H Temperature Source Pulse Rate Respiratory Rate 16 Blood Pressure BP Systolic BP Diastolic Pulse Ox 98 03/13/24 22:57 03/13/24 22:57 03/13/24 22:58 Temperature Temperature Source Pulse Rate 110 H Respiratory Rate Blood Pressure 106/52 L BP Systolic 106 BP Diastolic 52 Pulse Ox 98 03/13/24 22:58 03/13/24 22:58 03/13/24 22:58 Temperature Temperature Source Temporal Pulse Rate 117 H Respiratory Rate 18 Blood Pressure BP Systolic BP Diastolic Pulse Ox 03/13/24 23:39 03/13/24 23:39 03/13/24 23:39 Temperature Temperature Source Oral Pulse Rate 117 H Respiratory Rate Blood Pressure 105/63 BP Systolic 105 BP Diastolic 63 Pulse Ox 03/13/24 23:39 03/13/24 23:39 03/13/24 23:39 Temperature 98.9 F Temperature Source Pulse Rate Respiratory Rate 18 Blood Pressure BP Systolic BP Diastolic Pulse Ox 99 03/14/24 00:33 03/14/24 00:33 03/14/24 00:33 Temperature Temperature Source Pulse Rate 99 101 H Respiratory Rate Blood Pressure 113/68 BP Systolic 113 BP Diastolic 68 Pulse Ox 03/14/24 00:33 03/14/24 00:34 03/14/24 00:34 Temperature Temperature Source Temporal Pulse Rate Respiratory Rate 18 Blood Pressure BP Systolic BP Diastolic Pulse Ox 98 03/14/24 00:34 03/14/24 00:38 03/14/24 00:38 Temperature 98.9 F Temperature Source Pulse Rate 95 Respiratory Rate Blood Pressure BP Systolic BP Diastolic Pulse Ox 97 03/14/24 00:44 03/14/24 00:54 03/14/24 00:54 Temperature 97.9 F Temperature Source Pulse Rate 105 H Respiratory Rate Blood Pressure 126/77 H BP Systolic 126 BP Diastolic 77 Pulse Ox 03/14/24 00:54 Temperature Temperature Source Pulse Rate Respiratory Rate 18 Blood Pressure BP Systolic BP Diastolic Pulse Ox Weight Weight: 168 lb 2 oz Body Mass Index (BMI) 30.7 Physical Exam Const alert, oriented x3, no apparent distress and healthy appearing HEENT normocephalic and moist oral mucous membranes Head and Scalp: atraumatic Neck full ROM, no lymphadenopathy, supple and thyroid normal General: trachea midline Lymph Lymphatic: no lymphadenopathy noted Chest inspection of chest normal Resp normal respiratory effort Cardio regular rate GI normal to inspection, nondistended, normoactive bowel sounds, soft to palpation and non-tender Inspection: gravid external exam normal Manual OB Exam: estimated gestational size appropriate, presentation cephalic, dilated, effaced and station Extremity normal to inspection General Extremity: Negative for edema Skin no rashes or lesions noted Neuro no focal motor deficits and deep tendon reflexes 2+ bilaterally Motor Exam: strength 5/5 throughout and clonus absent Psych mental status grossly normal Labs Labs Labs: Blood Type O POSITIVE Antibody Screen NEGATIVE Hct 39.6 % (37-47) Hgb 13.8 g/dL (12.0-15.0) Obstetrics Ultrasound Syphilis Total Ab Non-reactive Rubella IgG Antibody Reactive (Nonreactive) Hep Bs Antigen Non-Reactive (Nonreactive) Hepatitis C Antibody Non-Reactive (Nonreactive) Chlamydia DNA (KAYLA) Negative (Negative) N.gonorrhoeae DNA (KAYLA) Negative (Negative) HIV 1&2 Antibody Non-Reactive (Nonreactive) Glucose 1 Hr 50 gm 118 mg/dL (70-140) Gest Glucose Tolerance MG/DL Rhogam given: No Assessment & Plan (1) Supervision of normal : QUALIFIERS: Normal : other normal Trimester: third trimester Qualified Code(s): Z34.83 - Encounter for supervision of other normal , third trimester COMMENT: PRR , RADHA 03/19/24, surprise PC: Ling, : Monica WANTS A DOC FOR DELIVERY (2) : QUALIFIERS: Weeks of gestation: 39 weeks Qualified Code(s): Z3A.39 - 39 weeks gestation of COMMENT: Neg GBS normal anatomy. Discussed genetic/carrier testing (3) Variable heart rate decelerations, antepartum: PLAN: Plan Patient presents IOL, plan management for with fb pit. Pain management: plans epidural. GBS negative. Management of any complications: none I have reviewed the [facility] and made any clinically relevant updates.
[2024-03-14] MEDS: Oxytocin 15 Units/NS 250ml 15 UNITS/250 ML IV.SOLN 83 UNITS IV (01:03)
--- NOTE | 2024-03-14 01:06 | EX.PCM.OBRPT ---
Assessment & Plan (1) Variable heart rate decelerations, antepartum: (2) Supervision of normal : QUALIFIERS: Normal : other normal Trimester: third trimester Qualified Code(s): Z34.83 - Encounter for supervision of other normal , third trimester COMMENT: PRR , RADHA 03/19/24, surprise PC: Ling, : Monica WANTS A DOC FOR DELIVERY (3) : QUALIFIERS: Weeks of gestation: 39 weeks Qualified Code(s): Z3A.39 - 39 weeks gestation of COMMENT: Neg GBS normal anatomy. Discussed genetic/carrier testing (4) Vaginal delivery: COMMENT: SM girl Marybeth 39 IOL decel Maternal Data Information RADHA Calculator Estimated Delivery Date Method Current WG Current Estimate 03/19/24 LMP (Certain) 39w 2d Vaginal Delivery Operative Information Date of Procedure: 03/14/24 Pre-Operative Diagnosis: see a/p diagnoses Post-Operative Diagnosis: same Surgery / Procedure Performed: Spontaneous Vaginal Delivery Type of Anesthesia: Epidural Special Medications: none Estimated Blood Loss: 200 Fluids Replaced: crystalloid Findings Description of Procedure: Patient began pushing and delivered the head in the JUDSON presentation. The head was delivered atraumatically . The anterior and posterior shoulders delivered without complication followed by the rest of the infant and the was placed on the maternal abdomen. Delayed cord clamping was employed for approximately 60 seconds. Cord was clamped and cut and gentle traction was applied to the cord and the placenta delivered spontaneously immediately following it was noted to be intact with three-vessel cord. The perineum and vagina were inspected and noted to have a first degree laceration repaired in the usual fashion. EBL was 200 cc. Patient and infant tolerated delivery well. Amniotic Fluid Description: Clear Placental Delivery Description: Spontaneous Placenta Disposition: [facility] Cord Vessel Description: 3 Vessels Cord Entanglement: None Delayed Cord Clamping: Yes Post Vaginal Delivery Medications Given After Delivery: IV Pitocin Episiotomy Description: None Complication Complications: None Procedures Urinary/Genital [id number]: [id number] Vaginal Delivery global pkg
--- NOTE | 2024-03-14 01:09 | DCINST_ITS ---
Discharge Instructions Diet Discharge Diet: No restrictions Activity Discharge Activity: Return to Normal Activity, May Not Drive (while taking narcotic pain medications.) and May Shower May resume sexual activity in: 4-6 weeks Dressing / Incision Call your doctor if your incision/area has: Continuous Slow Oozing, Sudden Increased Bleeding, Increased Pain/ Swelling, Increased Redness and Foul Smelling Discharge Follow Up Care Please Follow Up With: Katy Gonzalez MD When: Call [phone] to make an appointment with your doctor in 6 weeks. If you had elevated blood pressure or 4th degree laceration, you will need to be seen in 2 weeks. Test Results: Test results from this visit will be discussed in further detail at your follow- up appointment, if applicable. Discharge Plan Admission Admit Date/Time: 03/13/24 16:05 Attending Provider: Katy Gonzalez Primary Care Provider: Care Physician,No Primary Consulting Providers: Leatha Lopez NP Discharge Orders/Prescriptions Prescriptions: No Action PNV #[id number] 30 mg iron-10 mg iron-1 mg capsule 1 cap PO DAILY Referrals / Follow Up: Care Physician,No Primary [Primary Care Provider] - Disposition Disposition (needs filled in before D/C Order can be placed): Home, Self Care
[2024-03-14] MEDS: 0.9% Saline Lock 10 ML Syringe IV (04:10)
[2024-03-14] MEDS: Senna/Docusate Sodium 1 Tablet PO (06:05)
[2024-03-14] MEDS: Naproxen 500 MG Tablet PO (14:27)
[2024-03-15 00:51] VITALS: BP 95/59; BP 99/59; PULSE 86; RESP 16; TEMP 36.3
--- NOTE | 2024-03-15 07:54 | PCM.PN.OB ---
Subjective Subjective Patient doing well without complaints. Tolerating PO. Ambulating and voiding without difficulty. Feeding well. Denies chest pain, shortness of breath, calf pain/swelling, fevers, chills, lightheadedness. Objective Data Objective Data Vital Signs: Vital Signs Temp Pulse Resp BP Pulse Ox O2 Del Method 97.3 F L 86 16 95/59 L 96 Room Air 03/15/24 00:51 03/15/24 00:51 03/15/24 00:51 03/15/24 00:51 03/14/24 05:57 03/15/24 00:51 Oxygen Delivery Method Room Air Weight: 168 lb 2 oz Body Mass Index (BMI) 30.7 Intake & Output: Intake and Output for Last 24 Hours 03/13/24 03/14/24 03/15/24 23:59 23:59 23:59 Intake Total 2508.97 / 2508.97 672.03 / 672.03 Output Total 800 / 800 1999 / 1999 Balance 1708.97 / 1708.97 -1327.97 / -1327.97 Lab / Micro Data 03/13/24 16:20 Micro: Microbiology 03/13/24 17:03 Genital vaginal Gram Stain - Final Physical Exam Const alert and oriented x3 HEENT normocephalic Eyes PERRL Neck full ROM Resp normal respiratory effort GI soft to palpation GI Narrative: FF below U Assessment & Plan (1) Vaginal delivery: COMMENT: SM girl Marybeth 39 IOL decel PLAN: Plan s/p PPD # 1 1. routine post delivery care 2. breast feeding- support given 3. rh positive 4. rubella immune 5. home today
[2024-03-15 08:00] VITALS: BP 121/71; PULSE 86; RESP 15; TEMP 36.8
[2024-03-15 08:01] VITALS: BP 121/71; PULSE 86
[2024-03-15] MEDS: Senna/Docusate Sodium 1 Tablet PO (09:01)
== END 2024-03-15 10:05 | disposition home or self-care (01) | DRG 807 ==
PROVIDERS: Advanced Practice Midwife; Admitting Provider Obstetrics & Gynecology; Referring Provider Obstetrics & Gynecology; Visit Provider Obstetrics & Gynecology
DX: O76 Abnormality in fetal heart rate and rhythm complicating labor and delivery (principal); Z37.0 Single live birth; O70.0 First degree perineal laceration during delivery; Z3A.39 39 weeks gestation of pregnancy
CPT/HCPCS: 59025; 59050; 85025; 85384; 86780; 86850; 86900; 86901; 87070; 87205; 99221; J7120; A4216; G0378